=== PATIENT | male | born 1940 | race Hispanic/Latino ===

== ENCOUNTER 2016-10-23 10:09 | Inpatient (IN) | payer BC, MEDICARE ==
[2016-10-23 10:51] LABS: ADD MANUAL DIFF? NO
[2016-10-23 11:02] LABS: BASO # 0.03 K/mm3 (0.0-2.0); BASO % 0.4 % (0.0-3.0); EOS # 0.2 (0.0-0.7); EOS % 3.3 % (1.5-5.0); GRAN # 5.37 (1.4-6.5); GRAN % 73.1 % (50.0-68.0); HEMATOCRIT 39.2 % (42.0-52.0); LYMPH % 13.8 % (22.0-35.0); MEAN CELL VOLUME 92.7 fL (80.0-105.0); MEAN CORPUSCULAR HEMOGLOBIN 32.6 pg (25.0-35.0); MEAN CORPUSCULAR HGB CONC 35.2 g/dl (31.0-37.0); MEAN PLATELET VOLUME 12.2 fl (7.0-11.0); MONO # 0.7 (0.1-0.6); MONO % 9.4 % (1.0-6.0); PLATELET COUNT 165 10^3/uL (120.0-450.0); RED CELL DISTRIBUTION WIDTH 12.1 % (11.5-14.5); WHITE BLOOD COUNT 7.3 10^3/ul (4.5-11.0)
--- NOTE | 2016-10-23 11:07 | ED PDOC ---
Arrival/HPI - General Chief Complaint: Trauma Time Seen by Provider: 10/23/16 10:16 Historian: Patient - History of Present Illness Narrative History of Present Illness (Text): 10/23/16 11:03 Patient is a 76 year old male whose past medical history includes Parkinson's and dementia presenting to the emergency department for generalized weakness and fall at home this morning. Patient states he does not remember the fall and unsure if he hit his head. Son is at bedside providing history. Son states he did not witness the fall but was told the patient "slouched" before hitting the ground at low impact. He states no focal weakness was noticed by any family members. He also states the patient was able to bear weight but was not able to ambulate after the fall. Patient currently denies any complaints. PMD: Dr. Slaughter Neurologist: Dr. Anderson Symptom Onset: Sudden Symptom Course: Unchanged Modifying Factors (Text): None Associated Symptoms (Text): None Past Medical History - Provider Review Nursing Documentation Reviewed: Yes - Cardiac Hx Cardiac Disorders: Yes Hx Pacemaker: No - Pulmonary Hx Respiratory Disorders: No - Neurological Hx Neurological Disorder: Yes Hx Dementia: Yes Hx Paralysis: No Hx Parkinson's Disease: Yes - HEENT Hx HEENT Disorder: No - Renal Hx Renal Disorder: No - Endocrine/Metabolic Hx Endocrine Disorders: Yes Hx Hypothyroidism: Yes - Hematological/Oncological Hx Blood Disorders: No Hx Blood Transfusions: No - Integumentary Hx Dermatological Disorder: No - Musculoskeletal/Rheumatological Hx Musculoskeletal Disorders: No - Gastrointestinal Hx Gastrointestinal Disorders: No - Genitourinary/Gynecological Hx Genitourinary Disorders: No - Psychiatric Hx Psychophysiologic Disorder: Yes Hx Emotional Abuse: No Hx Physical Abuse: No Hx Substance Use: No - Anesthesia Hx Anesthesia Reactions: No Hx Malignant Hyperthermia: No - Suicidal Assessment Feels Threatened In Home Enviroment: No Family/Social History - Physician Review Nursing Documentation Reviewed: Yes Family/Social History: Unknown Family HX Smoking Status: Unknown If Ever Smoked Hx Alcohol Use: No Hx Substance Use: No Allergies/Home Meds Allergies/Adverse Reactions: Allergies No Known Allergies Allergy (Verified 10/23/16 10:18) Home Medications: Home Meds Medication Instructions Recorded Confirmed Aspirin [Aspirin Chewable] 81 mg PO DAILY 10/23/16 10/23/16 Chondroitin Sulfate A Sodium 400 mg PO BID 10/23/16 10/23/16 [Chondroitin Sulfate] Finasteride [Proscar] 5 mg PO DAILY 10/23/16 10/23/16 Glucosamine Sulfate Dipot Chlr 500 mg PO BID 10/23/16 10/23/16 [Glucosamine] Levothyroxine [Synthroid] 50 mcg PO DAILY 10/23/16 10/23/16 Mirabegron [Myrbetriq] 0 mg PO .3-4 TIMES 10/23/16 10/23/16 Multivit-Min/FA/Lycopen/Lutein 1 tab PO DAILY 10/23/16 10/23/16 [Sentry Senior Multivit Caplet] Pimavanserin Tartrate [Nuplazid] 17 mg PO BID 10/23/16 10/23/16 traZODone [Desyrel] 100 mg PO HS 10/23/16 10/23/16 Review of Systems - Review of Systems Systems not reviewed;Unavailable: Dementia (baseline) Eyes: absent: Vision Changes Respiratory: absent: SOB Neurological: absent: Focal Weakness Physical Exam Vital Signs Reviewed: Yes Vital Signs Temp Pulse Resp BP Pulse Ox 10/23/16 11:30 55 L 18 122/75 98 10/23/16 10:18 97.5 F L 53 L 16 120/73 97 Temperature: Afebrile Blood Pressure: Normal Pulse: Bradycardic Respiratory Rate: Normal Appearance: Positive for: Well-Appearing, Non-Toxic, Comfortable Pain Distress: None Mental Status: Positive for: other (Oriented x 3, baseline as per family) - Systems Exam Head: Present: Atraumatic, Normocephalic Pupils: Present: PERRL Conjunctiva: Present: Normal Pharnyx: Present: Other (Brown material on tongue). No: ERYTHEMA, EXUDATE Neck: Present: Normal Range of Motion, Other (Supple). No: MIDLINE TENDERNESS Respiratory/Chest: Present: Clear to Auscultation, Good Air Exchange. No: Respiratory Distress, Accessory Muscle Use Cardiovascular: Present: Regular Rate and Rhythm, Normal S1, S2. No: Murmurs Abdomen: Present: Normal Bowel Sounds. No: Tenderness, Distention, Peritoneal Signs Back: Present: Normal Inspection. No: Midline Tenderness Upper Extremity: Present: Normal Inspection, Normal ROM. No: Cyanosis, Edema, Deformity Lower Extremity: Present: Normal Inspection, Normal ROM, Other (No bony hip tenderness). No: Edema, Deformity Skin: Present: Warm, Dry, Normal Color. No: Rashes Psychiatric: Present: Oriented x 3 (Baseline as per family), Normal Concentration Medical Decision Making ED Course and Treatment: Impression: 76 year old male whose past medical history includes Parkinson's and dementia presenting to the emergency department for generalized weakness and fall at home this morning. Differential Diagnosis include but are not limited to: Plan: -- CT Head, EKG, CXR -- Labs -- Reassess and disposition Progress Notes: EKG shows sinus bradycardia at 53 BPM with incomplete right bundle branch block with Q waves in III and AVF. CT Head Systems Coordinator: Ronnell Walsh MD IMPRESSION: No acute findings Ankle X-ray Systems Coordinator: Stefano Jay DO IMPRESSION: No evidence of acute displaced fracture nor dislocation. 10/23/16 11:58 Labs grossly normal. All imaging WNL. Paged neurologist and med software configuration analyst, and will admit for syncope vs tia - Lab Interpretations Lab Results: 10/23/16 10:30 10/23/16 10:30 Lab Results 10/23/16 10:30: Free T4 0.87, TSH 3rd Generation 5.06 H 10/23/16 10:30: Sodium 137, Potassium 4.5, Chloride 103, Carbon Dioxide 29, Anion Gap 10, BUN 17, Creatinine 1.0, Est GFR ( Amer) > 60, Est GFR (Non- Af Amer) > 60, Random Glucose 105, Calcium 8.9, Phosphorus 2.9, Magnesium 2.0, Total Bilirubin 0.6, AST 30, ALT 35, Alkaline Phosphatase 81, Lactate Dehydrogenase 379, Total Creatine Kinase 97, Troponin I < 0.01, NT-Pro-B Natriuret Pep 139, Total Protein 6.7, Albumin 3.6, Globulin 3.0, Albumin/ Globulin Ratio 1.2 10/23/16 10:30: WBC 7.3, RBC 4.23, Hgb 13.8 L, Hct 39.2 L, MCV 92.7, MCH 32.6, MCHC 35.2, RDW 12.1, Plt Count 165, MPV 12.2 H, Gran % 73.1 H, Lymph % (Auto) 13.8 L, Adams % (Auto) 9.4 H, Eos % (Auto) 3.3, Baso % (Auto) 0.4, Gran # 5.37, Lymph # 1.0 L, Adams # 0.7 H, Eos # 0.2, Baso # 0.03 - RAD Interpretation Radiology Orders: 10/23/16 10:31 CHEST PORTABLE [RAD] Stat 10/23/16 11:02 HEAD W/O CONTRAST [CT] Stat 10/23/16 11:04 ANKLE LEFT 3 VIEWS ROUTINE [RAD] Stat - EKG Interpretation Interpreted by ED Physician: Yes Type: 12 lead EKG - Medication Orders Current Medication Orders: Discontinued Medications Aspirin (Aspirin Chewable) 81 mg PO STAT STA Stop: 10/23/16 12:03 Last Admin: 10/23/16 12:07 Dose: 81 mg - Scribe Statement The provider has reviewed the documentation as recorded by the Gwyn Magana Provider Scribe Attestation: All medical record entries made by the Gwyn were at my direction and personally dictated by me. I have reviewed the chart and agree that the record accurately reflects my personal performance of the history, physical exam, medical decision making, and the department course for this patient. I have also personally directed, reviewed, and agree with the discharge instructions and disposition. Disposition/Present on Arrival - Present on Arrival Any Indicators Present on Arrival: No History of DVT/PE: No History of Uncontrolled Diabetes: No Urinary Catheter: No History of Decub. Ulcer: No History Surgical Site Infection Following: None - Disposition Have Diagnosis and Disposition been Completed?: Yes Diagnosis: Syncope Disposition: HOSPITALIZED Disposition Time: 12:02 Patient Plan: Admission Patient Problems: Current Active Problems Problem Status Onset Syncope Acute Condition: FAIR
--- NOTE | 2016-10-23 11:08 | RAD ---
HISTORY: fall COMPARISON: No prior. FINDINGS: LUNGS: No active pulmonary disease. PLEURA: No significant pleural effusion identified, no pneumothorax apparent. CARDIOVASCULAR: Normal. OSSEOUS STRUCTURES: No significant abnormalities. VISUALIZED UPPER ABDOMEN: Normal. OTHER FINDINGS: None. IMPRESSION: No active disease.
[2016-10-23 11:10] LABS: ALB/GLOB RATIO 1.2 (1.1-1.8); ALKALINE PHOSPHATASE 81 U/L (38-133); ALT/SGPT 35 U/L (7-56); AST/SGOT 30 U/L (15-59); BILIRUBIN,TOTAL 0.6 mg/dL (0.2-1.3); BLOOD UREA NITROGEN 17 mg/dL (7-21); CALCIUM 8.9 mg/dL (8.4-10.5); CARBON DIOXIDE 29 mmol/L (21-33); CHLORIDE 103 mmol/L (98-107); GFR AFRICAN-AMERICAN > 60; GLUCOSE,RANDOM 105 mg/dL (70-110); PHOSPHOROUS 2.9 mg/dL (2.5-4.5); POTASSIUM 4.5 mmol/L (3.6-5.0); SODIUM 137 mmol/L (132-148); TOTAL PROTEIN 6.7 g/dL (5.8-8.3)
[2016-10-23 11:22] LABS: TROPONIN I < 0.01 ng/mL
--- NOTE | 2016-10-23 11:23 | CT ---
PROCEDURE: CT HEAD WITHOUT CONTRAST. HISTORY: altered COMPARISON: None available. TECHNIQUE: Axial computed tomography images were obtained through the head/brain without intravenous contrast. Radiation dose: Total exam DLP = 857 mGy-cm. This CT exam was performed using one or more of the following dose reduction techniques: Automated exposure control, adjustment of the mA and/or kV according to patient size, and/or use of iterative reconstruction technique. FINDINGS: HEMORRHAGE: No intracranial hemorrhage. BRAIN: No mass effect or edema. No atrophy or chronic microvascular ischemic changes. VENTRICLES: Unremarkable. No hydrocephalus. CALVARIUM: Unremarkable. PARANASAL SINUSES: Unremarkable as visualized. No significant inflammatory changes. MASTOID AIR CELLS: Unremarkable as visualized. No inflammatory changes. OTHER FINDINGS: None. IMPRESSION: No acute findings
[2016-10-23 11:26] LABS: FREE T4 0.87 ng/dL (0.78-2.19)
--- NOTE | 2016-10-23 11:36 | RAD ---
PROCEDURE: Left Ankle Radiographs. HISTORY: left ankle pain COMPARISON: None FINDINGS: BONES: No evidence of acute displaced fracture nor dislocation. Small plantar surface calcaneal enthesophyte. JOINTS: Normal. No osteoarthritis. Ankle mortise maintained. Talar dome intact SOFT TISSUES: Vascular calcifications are present. OTHER FINDINGS: None. IMPRESSION: No evidence of acute displaced fracture nor dislocation.
[2016-10-23 11:40] LABS: THYROID STIMULATING HORMONE 5.06 mIU/mL (0.46-4.68)
[2016-10-23 13:00] LABS: URINE APPEARANCE CLEAR (CLEAR); URINE BILIRUBIN NEGATIVE (NEGATIVE); URINE BLOOD NEGATIVE (NEGATIVE); URINE COLOR YELLOW (YELLOW); URINE GLUCOSE (UA) NEGATIVE (NEGATIVE); URINE KETONE NEGATIVE (NEGATIVE); URINE LEUKOCYTE ESTERASE NEGATIVE Leu/uL (NEGATIVE); URINE PROTEIN NEGATIVE mg/dL (<30 mg/dL); URINE UROBILINOGEN 0.2 E.U./dL (<1 E.U./dL)
[2016-10-23] MEDS ORDERED: Pneumococcal 23-Valent Vaccine IM ONE (14:31)
--- NOTE | 2016-10-23 20:26 | CARD ---
APPROVED REPORT EKG Measurement Heart [id number] <Conclusion> Sinus bradycardia Incomplete right bundle branch block Inferior infarct, age undetermined Abnormal ECG
--- NOTE | 2016-10-23 20:38 | CP.PCM.CON ---
<Michel Moss - Last Filed: 10/23/16 21:03> History of Present Illness - History of Present Illness History of Present Illness: This is a 76 y/o male with an unclear history of Parkinsons and dementia presenting s/p a fall at home. Patient states he does not remember this event however it was witnessed by family members who state that the patient was sitting in a chair when he began to slump forward and fell slowly to the ground. does not report loss of consciousness, seizure activity or head injury. The patient states he "blacked out" and does not remember the event at all. He notes one prior episode of syncope about 6 years ago. Currently he offers no complaints. He denies headache, focal weakness, chills, fever. Review of Systems - Constitutional Constitutional: absent: Chills, Fever - EENT Eyes: absent: Blurred Vision, Change in Vision Nose/Mouth/Throat: absent: Nasal Congestion, Nasal Discharge - Cardiovascular Cardiovascular: absent: Chest Pain, Edema, Syncope - Respiratory Respiratory: absent: Cough - Gastrointestinal Gastrointestinal: absent: Abdominal Pain, Diarrhea, Nausea - Genitourinary Genitourinary: absent: Hematuria, Urinary Urgency - Musculoskeletal Musculoskeletal: absent: Back Pain, Neck Pain - Integumentary Integumentary: absent: New Lesions - Neurological Neurological: absent: Abnormal Speech, Convulsions, Dizziness, Focal Weakness, Syncope - Psychiatric Psychiatric: absent: Anxiety, Depression Past Patient History - Past Social History Smoking Status: Unknown If Ever Smoked - CARDIAC Hx Cardiac Disorders: Yes Hx Pacemaker: No - PULMONARY Hx Respiratory Disorders: No - NEUROLOGICAL Hx Neurological Disorder: Yes Hx Dementia: Yes Hx Parkinson's Disease: Yes - HEENT Hx HEENT Problems: Yes (eyeglasses) - RENAL Hx Chronic Kidney Disease: No - ENDOCRINE/METABOLIC Hx Endocrine Disorders: Yes Hx Hypothyroidism: Yes - HEMATOLOGICAL/ONCOLOGICAL Hx Blood Disorders: No - INTEGUMENTARY Hx Dermatological Problems: No Other/Comment: small 0.5cm round ibrahim colored hard growth to top of r hand and red dry scab small 0.5cm to top of right hand, brown skin discoloration under bottom left lip - MUSCULOSKELETAL/RHEUMATOLOGICAL Hx Falls: Yes (today and past) - GASTROINTESTINAL Other/Comment: colonoscopy 08/2013 dx diverticulosis, hemorrhoids, hx colon polyps - GENITOURINARY/GYNECOLOGICAL Hx Genitourinary Disorders: Yes Hx Hematuria: Yes Hx Incontinence: Yes - PSYCHIATRIC Hx Psychophysiologic Disorder: Yes Hx Emotional Abuse: No Hx Physical Abuse: No - SURGICAL HISTORY Hx Surgeries: No (family denies) - ANESTHESIA Hx Anesthesia Reactions: No Hx Malignant Hyperthermia: No Meds Allergies/Adverse Reactions: Allergies Allergy/AdvReac Type Severity Reaction Status Date / Time No Known Allergies Allergy Verified 10/23/16 10:18 - Medications Medications: Current Medications Aspirin (Aspirin Chewable) 81 mg PO DAILY NATHALIE Non-Formulary Medication (Chondroitin Sulfate A Sodium [Chondroitin Sulfate]) 400 mg PO BID NATHALIE Non-Formulary Medication (Glucosamine Sulfate Dipot Chlr [Glucosamine]) 500 mg PO BID NATHALIE Non-Formulary Medication (Mirabegron [Myrbetriq]) 25 mg PO .3-4 TIMES NATHALIE Trazodone HCl (Desyrel) 100 mg PO HS NATHALIE Physical Exam - Constitutional Appears: Non-toxic, No Acute Distress - Head Exam Head Exam: ATRAUMATIC, NORMOCEPHALIC - Eye Exam Eye Exam: EOMI, PERRL - ENT Exam ENT Exam: Mucous Membranes Dry - Neck Exam Neck exam: Positive for: Normal Inspection. Negative for: Lymphadenopathy - Respiratory Exam Respiratory Exam: Clear to Auscultation Bilateral. absent: Rhonchi, Wheezes - Cardiovascular Exam Cardiovascular Exam: REGULAR RHYTHM, +S1, +S2 - GI/Abdominal Exam GI & Abdominal Exam: Normal Bowel Sounds, Soft. absent: Tenderness - Extremities Exam Extremities exam: Negative for: calf tenderness, pedal edema - Back Exam Back exam: NORMAL INSPECTION - Neurological Exam Neurological exam: Alert, CN II-XII Intact, Oriented x3 Additional comments: no motor deficits - Psychiatric Exam Psychiatric exam: Normal Affect - Skin Skin Exam: Normal Color, Warm Results - Vital Signs Recent Vital Signs: Last Vital Signs Temp 97.6 F 10/23/16 19:12 Pulse 54 L 10/23/16 19:12 Resp 20 10/23/16 19:12 BP 139/83 10/23/16 19:12 Pulse Ox 99 10/23/16 13:19 - Labs Result Diagrams: 10/23/16 10:30 10/23/16 10:30 Labs: Laboratory Results - last 24 hr 10/23/16 12:45 Urine Color Yellow Urine Appearance Clear Urine pH 6.0 Ur Specific Julian 1.020 Urine Protein Negative Urine Glucose (UA) Negative Urine Ketones Negative Urine Blood Negative Urine Nitrate Negative Urine Bilirubin Negative Urine Urobilinogen 0.2 Ur Leukocyte Esterase Negative Assessment & Plan - Assessment and Plan (Free Text) Assessment: 76 y/o male with hx lewy body dementia presenting s/p fall at home. Patient is stable and without significant head trauma or injury. There is concern for cerbrovascular event. - ASA daily - Lipitor 40mg daily - MRI, MRA, carotid doppler - continue Trazadone as per home medications <Liang Anderson - Last Filed: 12/13/16 12:09> Results - Vital Signs Recent Vital Signs: Last Vital Signs Temp 97.3 F L 10/25/16 12:43 Pulse 65 10/25/16 12:43 Resp 18 10/25/16 12:43 BP 162/100 H 10/25/16 12:43 Pulse Ox 96 10/25/16 06:00 - Labs Result Diagrams: 10/24/16 06:05 10/24/16 06:05 Attending/Attestation - Attestation I have personally seen and examined this patient.: Yes I have fully participated in the care of the patient.: Yes I have reviewed all pertinent clinical information: Yes
--- NOTE | 2016-10-24 02:52 | CON ---
DATE: 10/23/2016 REFERRING PHYSICIAN: Dr. Iyer. HISTORY OF PRESENT ILLNESS: This is a very nice 76-year-old male whose past medical history includes Lewy body dementia. The patient was at home. He was getting to go with his to a physician when he suddenly became very weak. He did not fall, but he became suddenly, almost, atonic. There was actually no loss of consciousness. The patient had no focal weakness other than this inability to stand up. He is not offering any new or other specific complaints. REVIEW OF SYSTEMS: Negative for chest pain, shortness of breath. No focal numbnesses or weaknesses. He currently feels like he is back to his normal state. CURRENT MEDICATIONS: Nuplazid, chondroitin, finasteride, glucosamine, levothyroxine, Myrbetriq, multivitamin, and trazodone. ALLERGIES: He has no known drug allergies. SOCIAL HISTORY: He does not drink. He does not smoke. PHYSICAL EXAMINATION: VITAL SIGNS: His blood pressure is 142/82. His heart rate is 55, temperature is 97.5. His respirations are 20. His O2 sat is 99% on room air. HEART: Regular sinus rhythm. LUNGS: Clear to auscultation and percussion. ABDOMEN: Soft, nontender. EXTREMITIES: No cyanosis, clubbing, or edema. NEUROLOGIC: This is an awake and alert man. He answers my questions. He is neither aphasic nor dysarthric, and he appears to be at his baseline. Cranial nerves II-XII: Pupils are equally reactive to light and accommodation. Extraocular muscles are intact. There is no facial asymmetry. The tongue is midline. Palate symmetric. He has sort of like a masklike facies. Decreased blink. He has no tremor. MOTOR SYSTEM: Strength is reasonably good. Deep tendon reflexes are intact. There is increased tone, but no cogwheeling. Gait is deferred at this point in time. NEUROLOGICAL IMPRESSION: This patient appears to have a vertebrobasilar transient ischemic attack. PLAN AND RECOMMENDATION: We are going to do a full and complete workup on the patient, which will include MRI/MRA. We will start the patient on a statin as well as a baby aspirin immediately. We will make sure the swallowing screen is done on this patient. We will get a cholesterol profile. We will follow the patient up in the office. Thank you so very much for allowing me to participate in the care of this patient. Liang Anderson MD cc: [id number] TT: 10/24/2016 02:51:23 Confirmation # [id number] Dictation # [id number] tn MTDD
[2016-10-24 06:46] LABS: HEMATOCRIT 41.8 % (42.0-52.0); MEAN CELL VOLUME 90.5 fL (80.0-105.0); MEAN CORPUSCULAR HEMOGLOBIN 32.3 pg (25.0-35.0); MEAN CORPUSCULAR HGB CONC 35.6 g/dl (31.0-37.0); MEAN PLATELET VOLUME 12.4 fl (7.0-11.0); WHITE BLOOD COUNT 7.4 10^3/ul (4.5-11.0)
[2016-10-24 06:55] LABS: BLOOD UREA NITROGEN 11 mg/dL (7-21); CALCIUM 8.9 mg/dL (8.4-10.5); CARBON DIOXIDE 27 mmol/L (21-33); CHLORIDE 105 mmol/L (98-107); CHOLESTEROL 157 mg/dL (130-200); GFR AFRICAN-AMERICAN > 60; GLUCOSE,RANDOM 89 mg/dL (70-110); POTASSIUM 3.8 mmol/L (3.6-5.0); SODIUM 139 mmol/L (132-148)
--- NOTE | 2016-10-24 07:43 | HP ---
CHIEF COMPLAINT: "I black out." HISTORY OF PRESENT ILLNESS: The patient is a 76-year-old male with past medical history of Parkinson's disease, dementia, came to the Emergency Room for generalized weakness, a fall at home this morning. The patient states that he does not remember the fall and unsure if he hit his head. Son was on the bedside in the Emergency Room who provided the history. The patient is not a very good historian. Son states that he did not witness the fall but was told by the patient. He states that no focal weakness was noticed by any family members. The patient told me in the telemetry that he passed out and blacked out, but does not remember exactly. After fall, patient was able to walk and not complaining about any pain. No shortness of breath. PAST MEDICAL HISTORY: Dementia, Parkinson disease, hypothyroidism, history of fall. FAMILY HISTORY: Father and mother noncontributory. HABITS: No alcohol. No substance abuse. Never smoked. ALLERGIES: The patient is not allergic with any medications. HOME MEDICATIONS: Aspirin, chondroitin sulfate, Proscar, glucosamine, Synthroid , multivitamins, trazodone. REVIEW OF SYSTEMS: The patient is seen and examined on the bedside in the telemetry. Looks comfortable. No nausea, vomiting, or diarrhea. No hematuria or hematochezia. No swelling of the legs. No chest pain, no palpitation. No headache, no dizziness. No shortness of breath. No fever, no chills. PHYSICAL EXAMINATION: VITAL SIGNS: Temperature 97.5, pulse 53, respiratory rate 18 , blood pressure 120/73. HEENT: Head normocephalic. Eyes: PERRLA. Extraocular muscles intact. Conjunctivae are clear. Nose patent. Mucous membranes moist. NECK: Supple. No carotid bruit, JVD or thyromegaly. CHEST: Bilaterally symmetrical. HEART: S1, S2 positive. LUNGS: Clear to auscultation. ABDOMEN: Soft. Bowel sounds present. No organomegaly. EXTREMITIES: No edema, no cyanosis. NEUROLOGIC: The patient is awake, alert. Moving all 4 extremities. No focal deficit. LABORATORY DATA: White blood cells 7.3, hemoglobin 13.8, hematocrit 39.2, platelets 155. Sodium 137, potassium 4.5, BUN 17, creatinine 1.0, and glucose 105. ASSESSMENT AND PLAN: The patient is a 76-year-old male with anemia, came with syncopal attack/passing out, history of Parkinson's disease, hypothyroidism, dementia, degenerative joint disease, is admitted with a syncopal attack. CAT scan of the head done, reviewed by me. X-rays of the ankle done, reviewed by me. History of falls, history of hematuria, urinary incontinence. Called consult with Dr. Liang Anderson because he is the private neurologist of the patient. GI and DVT prophylaxis. Bilateral carotid Doppler of the neck ordered. MRA of the head ordered. The patient should be on fall precautions. Will follow up. Aisha Iyer MD cc: [id number] TT: 10/24/2016 07:42:24 arley APARICIO
[2016-10-24] MEDS ORDERED: CHONDROITIN SULFATE A SODIUM 400 MG PO SCH (10:00)
[2016-10-24] MEDS ORDERED: GLUCOSAMINE SULFATE DIPOT CHLR 500 MG PO SCH (10:00)
--- NOTE | 2016-10-24 13:50 | CP.PCM.PN ---
<Michel Moss - Last Filed: 10/24/16 13:43> Subjective - Date & Time of Evaluation Date of Evaluation: 10/24/16 Time of Evaluation: 11:40 - Subjective Subjective: Patient awake and alert this morning. Son is at bedside. Overnight was uneventful. Patient has no complaints at this time. He remains neurologically intact. He answers questions appropriately. Son states patient is at his baseline mental status. He will go for MRI and MRA this morning. Objective - Vital Signs/Intake and Output Vital Signs (last 24 hours): Temp Pulse Resp BP Pulse Ox 97 F L 64 20 99/66 L 96 10/24/16 12:00 10/24/16 12:00 10/24/16 12:00 10/24/16 12:00 10/24/16 09:00 Intake and Output: 10/24/16 10/24/16 06:59 18:59 Intake Total 0 Output Total 500 Balance -500 - Medications Medications: Current Medications Aspirin (Aspirin Chewable) 81 mg PO DAILY [facility] Last Admin: 10/24/16 09:28 Dose: 81 mg Atorvastatin Calcium (Lipitor) 40 mg PO DIN [facility] Last Admin: 10/23/16 21:37 Dose: 40 mg Non-Formulary Medication (Chondroitin Sulfate A Sodium [Chondroitin Sulfate]) 400 mg PO BID [facility] Last Admin: 10/24/16 09:23 Dose: Not Given Non-Formulary Medication (Glucosamine Sulfate Dipot Chlr [Glucosamine]) 500 mg PO BID [facility] Last Admin: 10/24/16 09:24 Dose: Not Given Non-Formulary Medication (Mirabegron [Myrbetriq]) 25 mg PO .3-4 TIMES [facility] Trazodone HCl (Desyrel) 100 mg PO [facility] Last Admin: 10/23/16 21:37 Dose: 100 mg - Labs Labs: 10/24/16 06:05 10/24/16 06:05 - Constitutional Appears: Non-toxic, No Acute Distress - Head Exam Head Exam: ATRAUMATIC, NORMOCEPHALIC - Eye Exam Eye Exam: EOMI, PERRL - ENT Exam ENT Exam: Mucous Membranes Dry - Neck Exam Neck Exam: Full ROM, Normal Inspection. absent: Lymphadenopathy - Respiratory Exam Respiratory Exam: Clear to Ausculation Bilateral. absent: Rales, Rhonchi, Wheezes - Cardiovascular Exam Cardiovascular Exam: REGULAR RHYTHM, +S1, +S2 - GI/Abdominal Exam GI & Abdominal Exam: Soft, Normal Bowel Sounds. absent: Tenderness - Extremities Exam Extremities Exam: absent: Calf Tenderness, Pedal Edema - Neurological Exam Neurological Exam: Alert, Awake - Psychiatric Exam Psychiatric exam: Normal Affect. absent: Anxious, Depressed - Skin Skin Exam: Normal Color, Warm Assessment and Plan - Assessment and Plan (Free Text) Assessment: 76 y/o male with hx Lewy Body dementia presenting s/p fall at home. Patient is neurologically intact. Mental status is at baseline. He will go for MRI and MRA today to r/o cerebrovascular causes of his fall and apparent mental status changes. - continue with Aspirin and statin therapy - f/u MRI, MRA, carotid doppler results - will continue patient on Trazodone - will continue patient on Nuplazid 17mg BID as well - son will bring meds from home <Liang Anderson - Last Filed: 12/13/16 12:05> Objective - Vital Signs/Intake and Output Vital Signs (last 24 hours): Temp Pulse Resp BP Pulse Ox 97.3 F L 65 18 162/100 H 96 10/25/16 12:43 10/25/16 12:43 10/25/16 12:43 10/25/16 12:43 10/25/16 06:00 - Labs Labs: 10/24/16 06:05 10/24/16 06:05 Attending/Attestation - Attestation I have personally seen and examined this patient.: Yes I have fully participated in the care of the patient.: Yes I have reviewed all pertinent clinical information, including history, physical exam and plan: Yes
--- NOTE | 2016-10-24 14:43 | US ---
PROCEDURE: Bilateral carotid artery duplex ultrasound HISTORY: Carotid stenosis CVA PHYSICIAN(S): Ki Posadas MD. TECHNIQUE: Duplex sonography and color-flow Doppler were used to evaluate the carotid bifurcations and limited segments of the vertebral arteries bilaterally. FINDINGS: There is mild to moderate focal smooth heterogeneous echogenic plaque noted at the carotid bifurcations bilaterally. The peak systolic velocity in the proximal right internal carotid artery is 120 cm/sec. This corresponds to a 40-59 percent proximal right ICA stenosis. Normal systolic velocities are noted in the proximal right external carotid artery. There is antegrade flow in the right vertebral artery. The peak systolic velocity in the proximal left internal carotid artery is 103 cm/sec. This corresponds to a 20 to 39% proximal left ICA stenosis. Normal systolic velocities are noted in the proximal left external carotid artery. There is antegrade flow in the dominant left vertebral artery. IMPRESSION: 1. 40-59 percent proximal right ICA stenosis. 2. 20-39 percent proximal left ICA stenosis. 3. Antegrade flow in both vertebral arteries.
--- NOTE | 2016-10-24 15:02 | MRI ---
PROCEDURE: MRI BRAIN WITHOUT CONTRAST HISTORY: r/o cva COMPARISON: 01/27/2015 TECHNIQUE: Multiplanar, multisequence MR images of the brain were obtained without intravenous contrast enhancement. FINDINGS: HEMORRHAGE: None DWI: No evidence of an acute or early subacute infarction. BRAIN PARENCHYMA: No mass effect or edema. Mild chronic microvascular changes are seen in the periventricular and subcortical white matter. VENTRICLES: Unremarkable. No hydrocephalus. CRANIUM: Unremarkable. ORBITS: Grossly unremarkable. PARANASAL SINUSES/MASTOIDS: Clear VASCULAR SYSTEM: Skull base flow voids intact. OTHER FINDINGS: None. IMPRESSION: No acute findings
--- NOTE | 2016-10-24 15:05 | MRI ---
PROCEDURE: Magnetic Resonance Angiography Brain HISTORY: r/o cva COMPARISON: None available. TECHNIQUE: 3D time of flight MR angiography of the intracranial arteries was performed. Rotating maximum intensity projection images were generated. FINDINGS: INTERNAL CEREBRAL ARTERIES: Unremarkable. The skull base, petrous, cavernous and supraclinoid segments are bilaterally widely patient. ANTERIOR CEREBRAL ARTERIES: Unremarkable. A1 and A2 segments are widely patent. Smaller distal branches unremarkable, as visualized. MIDDLE CEREBRAL ARTERIES: Unremarkable. M1 and M2 segments are widely patent. Perisylvian branches grossly symmetric. POSTERIOR CIRCULATION: Basilar Artery: Severe tortuosity of the basilar artery. Distal Vertebral Arteries: Unremarkable. Posterior Cerebral Arteries: Unremarkable. Posterior Inferior Cerebellar Arteries: Unremarkable. ANEURYSM/ VASCULAR MALFORMATIONS: None. OTHER FINDINGS: None. IMPRESSION: Unremarkable MR angiography of the brain.
[2016-10-24] MEDS ORDERED: Home Med 1 UNIT PO SCH (18:00)
[2016-10-24] MEDS ORDERED: NUPLAZID 17 MG PO SCH (18:00)
[2016-10-24] MEDS: GLUCOSAMINE 500 MG PO SCH (21:18)
[2016-10-24] MEDS: CHONDROITIN PO SCH (21:18)
[2016-10-24] MEDS: NUPLAZID 17 MG PO SCH (21:19)
[2016-10-24] MEDS: MYRBETRIQ 50 MG PO SCH (21:19)
--- NOTE | 2016-10-25 06:42 | PN ---
DATE: 10/24/2016 SUBJECTIVE: The patient was seen and examined on the bedside in the evening. Daughter and were sitting on the bedside and I spoke to the patient's son today early in the morning and length of time discussion done. All questions answered. Nursing supervisor metal placing, Kathryn, was standing on the bedside, ____ the patient was confused and was a little bit restless and anxious. Overnight was uneventful. The patient does not have any complaints. He just wants to go out to get fresh air. MRI, MRA and bilateral carotid Doppler of the neck are done. PHYSICAL EXAMINATION: VITAL SIGNS: Temperature 97, pulse 64, respiratory rate 20, blood pressure 99/ 56, pulse oximetry 96. HEENT: Head normocephalic, atraumatic. Eyes: PERRLA. Extraocular muscles intact. Conjunctivae clear. Nose patent. Mucous membranes moist. NECK: Supple. No carotid bruit, JVD or thyromegaly. CHEST: Bilaterally symmetrical. HEART: S1, S2 positive. LUNGS: Clear to auscultation. ABDOMEN: Soft. Bowel sounds present. No organomegaly. EXTREMITIES: No edema, no cyanosis. NEUROLOGIC: The patient is awake, alert, but getting episodes of confusion, moving all 4 extremities. No focal deficit. MEDICATIONS: Aspirin, Lipitor, chondroitin sulfate, glucosamine, trazodone. LABORATORY DATA: White blood cells 7.4, hemoglobin 14.9, hematocrit 41.8, platelets 186. Sodium 139, potassium 3.8, BUN 11, creatinine 0.8, glucose 89. ASSESSMENT AND PLAN: The patient is a 76-year-old male with Lewy body dementia presenting with fall at home. Rule out syncopal attack. The patient went for brain MRI, no acute findings. Reviewed by me. Head MRA is done, unremarkable MR angiography of the brain, reviewed by me. Bilateral carotid Doppler ultrasound is done, reviewed by me, 20-39% proximal left internal carotid artery stenosis, antegrade flow in both vertebral arteries noted, 40-59% proximal right internal carotid artery stenosis. Carotid artery Doppler done. According to Dr. Ki Posadas, there is antegrade flow of the blood . CAT scan of the head is done, reviewed Dr. Liang Anderson's notes. The patient appears to have vertebrobasilar transient ischemic attack. Dr. Anderson ordered a full workup. That looks like within normal limits. Today evening, the patient shows some signs of altered mental status. Kathryn, the head nurse, was standing on the bedside. Yesterday, 1:1, then patient's family, and daughter came. Length of time discussion done with them. All questions answered. We will continue aspirin, trazodone, home medications, whatever the patient was taking at home. The patient has hypothyroidism, getting Synthroid. Benign prostatic hypertrophy, getting Proscar. Hypercholesterolemia, taking Lipitor. Degenerative joint disease, taking medications for that. Gastrointestinal and deep venous thrombosis prophylaxis. Repeat labs. We will follow up. Aisha Iyer MD cc: [id number] TT: 10/25/2016 06:42:01 Confirmation # [id number] Dictation # [id number] tn MTDD
[2016-10-25 06:57] VITALS: TEMP 97.3; O2SAT 96
[2016-10-25] MEDS ORDERED: Levothyroxine 50 MCG TAB PO SCH (07:30)
--- NOTE | 2016-10-25 09:37 | CP.PCM.PN ---
<Michel Moss - Last Filed: 10/25/16 09:34> Subjective - Date & Time of Evaluation Date of Evaluation: 10/25/16 Time of Evaluation: 09:34 - Subjective Subjective: Patient is awake and alert. As per nursing notes, patient noted to be restless overnight. No new medications were added. Patient remains mildly confused. He answers questions appropriately however. He offers no other complaints or concerns at this time. Objective - Vital Signs/Intake and Output Vital Signs (last 24 hours): Temp Pulse Resp BP Pulse Ox 97.3 F L 78 20 162/92 H 96 10/25/16 06:00 10/25/16 06:00 10/25/16 06:00 10/25/16 06:00 10/25/16 06:00 Intake and Output: 10/25/16 10/25/16 06:59 18:59 Intake Total 300 Output Total 450 Balance -150 - Medications Medications: Current Medications Aspirin (Aspirin Chewable) 81 mg PO DAILY [facility] Last Admin: 10/24/16 09:28 Dose: 81 mg Atorvastatin Calcium (Lipitor) 40 mg PO DIN [facility] Last Admin: 10/24/16 18:39 Dose: Not Given Finasteride (Proscar) 5 mg PO DAILY [facility] Home Med (Home Med) 1 unit PO DAILY [facility] Last Admin: 10/24/16 21:19 Dose: 1 unit Home Med (Home Med) 1 unit PO TID [facility] Last Admin: 10/24/16 21:18 Dose: 1 unit Home Med (Home Med) 2 unit PO DAILY [facility] Last Admin: 10/24/16 21:19 Dose: 2 unit Levothyroxine Sodium (Synthroid) 50 mcg PO ACB [facility] Last Admin: 10/25/16 08:41 Dose: 50 mcg Trazodone HCl (Desyrel) 100 mg PO HS [facility] Last Admin: 10/24/16 21:20 Dose: 100 mg - Labs Labs: 10/24/16 06:05 10/24/16 06:05 - Constitutional Appears: Non-toxic, No Acute Distress - Head Exam Head Exam: ATRAUMATIC, NORMOCEPHALIC - Eye Exam Eye Exam: EOMI, PERRL - ENT Exam ENT Exam: Mucous Membranes Moist - Neck Exam Neck Exam: Full ROM, Normal Inspection - Respiratory Exam Respiratory Exam: Clear to Ausculation Bilateral. absent: Rales, Rhonchi, Wheezes - Cardiovascular Exam Cardiovascular Exam: REGULAR RHYTHM, +S1, +S2 - GI/Abdominal Exam GI & Abdominal Exam: Soft, Normal Bowel Sounds. absent: Tenderness - Extremities Exam Extremities Exam: absent: Calf Tenderness, Pedal Edema - Neurological Exam Neurological Exam: Alert, Awake Additional comments: oriented to person and place. patient is moving all extremities spontaneously. there are no focal deficits. - Psychiatric Exam Psychiatric exam: absent: Anxious, Depressed, Flat Affect - Skin Skin Exam: Normal Color Assessment and Plan - Assessment and Plan (Free Text) Assessment: 76 y/o male with hx Lewy Body dementia presenting s/p fall at home. Patient is neurologically intact. Mental status is at baseline. MRI, MRA are completed and do not reveal any acute findings. Carotid dopplers do not reveal significant stenosis. - no evidence of cerebrovascular disease or acute event. Aspirin and Lipitor may be discontinued when discharged. - will continue patient on Trazodone - will continue patient on Nuplazid 17mg BID as well - there is no clear evidence of a neurological cause for patient's fall and apparent change in mental status. patient and family advised to f/u with Dr. Anderson after discharge for continued management of patient's chronic neurological disease. <Liang Anderson - Last Filed: 12/13/16 12:06> Objective - Vital Signs/Intake and Output Vital Signs (last 24 hours): Temp Pulse Resp BP Pulse Ox 97.3 F L 65 18 162/100 H 96 10/25/16 12:43 10/25/16 12:43 10/25/16 12:43 10/25/16 12:43 10/25/16 06:00 - Labs Labs: 10/24/16 06:05 10/24/16 06:05 Attending/Attestation - Attestation I have personally seen and examined this patient.: Yes I have fully participated in the care of the patient.: Yes I have reviewed all pertinent clinical information, including history, physical exam and plan: Yes
[2016-10-25] MEDS: MYRBETRIQ 50 MG PO SCH (11:06)
[2016-10-25] MEDS: NUPLAZID 17 MG PO SCH (11:06)
[2016-10-25] MEDS: GLUCOSAMINE 500 MG PO SCH (11:06)
[2016-10-25] MEDS: CHONDROITIN PO SCH (11:06)
--- NOTE | 2016-10-25 12:26 | CON ---
DATE: 10/25/2016 REFERRING PHYSICIAN: Dr. Iyer. HISTORY OF PRESENT ILLNESS: This is a very nice 76-year-old male who apparently had a TIA. The ramy ent is doing very well. He is not offering any new or other specific complaints. He has been somewh at confused in the hospital. This is most likely secondary to his dementia. PHYSICAL EXAMINATION: VITAL SIGNS: Blood pressure is 120/80, heart rate is 70, afebrile. HEART: Sinus rhythm. LUNGS: Clear to auscultation and percussion. ____ EXTREMITIES: No cyanosis, clubbing or edema. GENERAL NEUROLOGIC: This is a bright, awake man. He recognized me as soon as I walked into the room . He is neither aphasic nor dysarthric. He does seem somewhat agitated. Cranial nerves II-XII: Pu pils are equal, reactive to light and accommodation. Extraocular muscles are intact. No facial asym metry. Tongue is midline. Palate is symmetrical. Motor system: Strength is reasonably good. He h as parkinsonian symptoms, which include a masklike facies, slow gait, no tremor, rigidity, decreased blink. NEUROLOGIC IMPRESSION: 1. The patient has Lewy body dementia. 2. Transient ischemic attack. PLAN AND RECOMMENDATION: Discharge patient on statin, discharge patient on aspirin, discharge patien t for followup in my office in 2 weeks. MRI/MRA is negative. Thank you so much for allowing me to participate in the care of this patient. Liang Anderson MD cc: [id number] TT: 10/25/2016 12:25:36 Confirmation # [id number] Dictation # [id number] eric
[2016-10-25 12:48] VITALS: BP 162/100; PULSE 65; RESP 18
--- NOTE | 2016-12-17 09:06 | CP.PCM.DIS ---
Provider - Provider Date of Admission: 10/23/16 12:00 dictating discharge summery of 10/25/16 Attending physician: Aisha Ieyr MD Primary care physician: roshni Time Spent in preparation of Discharge (in minutes): 60 Hospital Course - Lab Results Lab Results: Micro Results 10/23/16 12:45 Urine Urine Culture - Final No Growth (<1,000 CFU/ML) Most Recent Lab Values WBC 7.4 10^3/ul (4.5-11.0) 10/24/16 06:05 RBC 4.62 10^6/uL (3.5-6.1) 10/24/16 06:05 Hgb 14.9 gm/dL (14.0-18.0) 10/24/16 06:05 Hct 41.8 % (42.0-52.0) L 10/24/16 06:05 MCV 90.5 fL (80.0-105.0) 10/24/16 06:05 MCH 32.3 pg (25.0-35.0) 10/24/16 06:05 MCHC 35.6 g/dl (31.0-37.0) 10/24/16 06:05 RDW 12.0 % (11.5-14.5) 10/24/16 06:05 Plt Count 186 10^3/uL (120.0-450.0) 10/24/16 06:05 MPV 12.4 fl (7.0-11.0) H 10/24/16 06:05 Gran % 73.1 % (50.0-68.0) H 10/23/16 10:30 Lymph % (Auto) 13.8 % (22.0-35.0) L 10/23/16 10:30 Villalba % (Auto) 9.4 % (1.0-6.0) H 10/23/16 10:30 Eos % (Auto) 3.3 % (1.5-5.0) 10/23/16 10:30 Baso % (Auto) 0.4 % (0.0-3.0) 10/23/16 10:30 Gran # 5.37 (1.4-6.5) 10/23/16 10:30 Lymph # 1.0 (1.2-3.4) L 10/23/16 10:30 Villalba # 0.7 (0.1-0.6) H 10/23/16 10:30 Eos # 0.2 (0.0-0.7) 10/23/16 10:30 Baso # 0.03 K/mm3 (0.0-2.0) 10/23/16 10:30 Sodium 139 mmol/L (132-148) 10/24/16 06:05 Potassium 3.8 mmol/L (3.6-5.0) 10/24/16 06:05 Chloride 105 mmol/L (98-107) 10/24/16 06:05 Carbon Dioxide 27 mmol/L (21-33) 10/24/16 06:05 Anion Gap 11 (10-20) 10/24/16 06:05 BUN 11 mg/dL (7-21) 10/24/16 06:05 Creatinine 0.8 mg/dL (0.5-1.4) 10/24/16 06:05 Est GFR ( Amer) > 60 10/24/16 06:05 Est GFR (Non-Af Amer) > 60 10/24/16 06:05 POC Glucose (mg/dL) 133 mg/dL (65-110) H 10/23/16 10:20 Random Glucose 89 mg/dL (70-110) 10/24/16 06:05 Hemoglobin A1c 5.1 % (4.2-6.5) 10/24/16 06:05 Calcium 8.9 mg/dL (8.4-10.5) 10/24/16 06:05 Phosphorus 2.9 mg/dL (2.5-4.5) 10/23/16 10:30 Magnesium 2.0 mg/dL (1.7-2.2) 10/23/16 10:30 Total Bilirubin 0.6 mg/dL (0.2-1.3) 10/23/16 10:30 AST 30 U/L (15-59) 10/23/16 10:30 ALT 35 U/L (7-56) 10/23/16 10:30 Alkaline Phosphatase 81 U/L (38-133) 10/23/16 10:30 Lactate Dehydrogenase 379 U/L (333-699) 10/23/16 10:30 Total Creatine Kinase 97 U/L (35-230) 10/23/16 10:30 Troponin I < 0.01 ng/mL 10/23/16 10:30 NT-Pro-B Natriuret Pep 139 pg/mL (0-450) 10/23/16 10:30 Total Protein 6.7 g/dL (5.8-8.3) 10/23/16 10:30 Albumin 3.6 g/dL (3.0-4.8) 10/23/16 10:30 Globulin 3.0 gm/dL 10/23/16 10:30 Albumin/Globulin Ratio 1.2 (1.1-1.8) 10/23/16 10:30 Triglycerides 72 mg/dL (35-160) 10/24/16 06:05 Cholesterol 157 mg/dL (130-200) 10/24/16 06:05 LDL Cholesterol Direct 102 mg/dL (0-129) 10/24/16 06:05 HDL Cholesterol 45 mg/dL (29-60) 10/24/16 06:05 Free T4 0.87 ng/dL (0.78-2.19) 10/23/16 10:30 TSH 3rd Generation 4.02 mIU/mL (0.46-4.68) 10/24/16 06:05 Urine Color Yellow (YELLOW) 10/23/16 12:45 Urine Appearance Clear (CLEAR) 10/23/16 12:45 Urine pH 6.0 (4.7-8.0) 10/23/16 12:45 Ur Specific Matheny 1.020 (1.005-1.035) 10/23/16 12:45 Urine Protein Negative mg/dL (<30 mg/dL) 10/23/16 12:45 Urine Glucose (UA) Negative mg/dL (NEGATIVE) 10/23/16 12:45 Urine Ketones Negative mg/dL (NEGATIVE) 10/23/16 12:45 Urine Blood Negative (NEGATIVE) 10/23/16 12:45 Urine Nitrate Negative (NEGATIVE) 10/23/16 12:45 Urine Bilirubin Negative (NEGATIVE) 10/23/16 12:45 Urine Urobilinogen 0.2 E.U./dL (<1 E.U./dL) 10/23/16 12:45 Ur Leukocyte Esterase Negative Senia/uL (NEGATIVE) 10/23/16 12:45 - Hospital Course Hospital Course: Patient is a 76 year old male whose past medical history includes Parkinson's and dementia presenting to the emergency department for generalized weakness and fall at home this morning. Patient states he does not remember the fall and unsure if he hit his head. Son is at bedside providing history. Son states he did not witness the fall but was told the patient "slouched" before hitting the ground at low impact. He states no focal weakness was noticed by any family members. He also states the patient was able to bear weight but was not able to ambulate after the fall. Patient currently denies any complaints.hari . consult called with his own private ileana byers done Patient is neurologically intact. Mental status is at baseline. MRI, MRA are completed and do not reveal any acute findings. Carotid dopplers do not reveal significant stenosis. - no evidence of cerebrovascular disease or acute event. Aspirin and Lipitor may be discontinued when discharged. - will continue patient on Trazodone - will continue patient on Nuplazid 17mg BID as well - there is no clear evidence of a neurological cause for patient's fall and apparent change in mental status. patient and family advised to f/u with Dr. Anderson after discharge for continued management of patient's chronic neurological disease. Discharge Exam - Head Exam Head Exam: ATRAUMATIC, NORMOCEPHALIC - Eye Exam Eye Exam: EOMI, Normal appearance, PERRL Pupil Exam: NORMAL ACCOMODATION, PERRL - ENT Exam ENT Exam: Normal Oropharynx - Neck Exam Neck exam: Full Rom, Normal Inspection - Respiratory Exam Respiratory Exam: NORMAL BREATHING PATTERN - Cardiovascular Exam Cardiovascular Exam: REGULAR RHYTHM - GI/Abdominal Exam GI & Abdominal Exam: Normal Bowel Sounds - Rectal Exam Rectal Exam: NORMAL INSPECTION - Exam Exam: Circumcision, NORMAL INSPECTION External exam: NORMAL EXTERNAL EXAM Speculum exam: NORMAL SPECULUM EXAM Bimanual exam: NORMAL BIMANUAL EXAM - Neurological Exam Neurological exam: Alert, CN II-XII Intact, Normal Gait, Oriented x3, Reflexes Normal - Psychiatric Exam Psychiatric exam: Normal Affect, Normal Mood - Skin Skin Exam: Dry, Intact, Normal Color, Warm Discharge Plan - Discharge Medications Prescriptions: Aspirin [Aspirin Chewable] 81 mg PO DAILY #30 Atorvastatin [Lipitor] 40 mg PO DIN #30 tab - Follow Up Plan Condition: FAIR Disposition: HOME/ ROUTINE Instructions: Syncope (DC), Syncope (GEN) Additional Instructions: please take all medication prescribed also take safety precautions.call your doctor for any discomfort or go to your nearest emergency room.
== END 2016-10-25 14:41 | disposition home or self-care (01) | DRG 57 ==
LOC: ED 10:09 → ERH 12:00 → 2RNO 14:00
PROVIDERS: ADMIT Internal Medicine; ATTEND Internal Medicine
DX: G31.83 Neurocognitive disorder with Lewy bodies (principal); G45.0 Vertebro-basilar artery syndrome; F02.80 Dementia in other diseases classified elsewhere, unspecified severity, without behavioral disturbance, psychotic disturbance, mood disturbance, and anxiety; G20 Parkinson's disease; R55 Syncope and collapse; E03.9 Hypothyroidism, unspecified; M19.90 Unspecified osteoarthritis, unspecified site; D64.9 Anemia, unspecified; N40.0 Benign prostatic hyperplasia without lower urinary tract symptoms; E78.00 Pure hypercholesterolemia, unspecified; Z79.82 Long term (current) use of aspirin

== ENCOUNTER 2017-01-10 22:46 | Inpatient (IN) | payer MEDICARE ==
[2017-01-10 22:55] VITALS: BMI 25.1
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
--- NOTE | 2017-01-10 23:33 | ED PDOC ---
Arrival/HPI - General Chief Complaint: Altered Mental Status Time Seen by Provider: 01/10/17 23:08 - History of Present Illness Narrative History of Present Illness (Text): 01/10/17 23:18 Past Medical History - Cardiac Hx Cardiac Disorders: Yes Hx Pacemaker: No - Pulmonary Hx Respiratory Disorders: No - Neurological Hx Neurological Disorder: Yes Hx Dementia: Yes Hx Parkinson's Disease: Yes - HEENT Hx HEENT Disorder: Yes (eyeglasses) - Renal Hx Renal Disorder: No - Endocrine/Metabolic Hx Endocrine Disorders: Yes Hx Hypothyroidism: Yes - Hematological/Oncological Hx Blood Disorders: No - Integumentary Hx Dermatological Disorder: No Other/Comment: small 0.5cm round ibrahim colored hard growth to top of r hand and red dry scab small 0.5cm to top of right hand, brown skin discoloration under bottom left lip - Musculoskeletal/Rheumatological Hx Falls: Yes (today and past) - Gastrointestinal Hx Gastrointestinal Disorders: Yes Other/Comment: colonoscopy 08/2013 dx diverticulosis, hemorrhoids, hx colon polyps - Genitourinary/Gynecological Hx Genitourinary Disorders: Yes Hx Hematuria: Yes Hx Incontinence: Yes - Psychiatric Hx Psychophysiologic Disorder: Yes Hx Emotional Abuse: No Hx Physical Abuse: No Hx Substance Use: No - Anesthesia Hx Anesthesia: Yes Hx Anesthesia Reactions: No Hx Malignant Hyperthermia: No - Suicidal Assessment Feels Threatened In Home Enviroment: No Family/Social History Smoking Status: Unknown If Ever Smoked Hx Alcohol Use: No Hx Substance Use: No Allergies/Home Meds Allergies/Adverse Reactions: Allergies No Known Allergies Allergy (Verified 01/10/17 22:55) Home Medications: Home Meds Medication Instructions Recorded Confirmed Chondroitin Sulfate A Sodium 400 mg PO BID 10/23/16 10/23/16 [Chondroitin Sulfate] Finasteride [Proscar] 5 mg PO DAILY 10/23/16 10/23/16 Glucosamine Sulfate Dipot Chlr 500 mg PO BID 10/23/16 10/23/16 [Glucosamine] Levothyroxine [Synthroid] 50 mcg PO DAILY 10/23/16 10/23/16 Mirabegron [Myrbetriq] 0 mg PO .3-4 TIMES 10/23/16 10/23/16 Multivit-Min/FA/Lycopen/Lutein 1 tab PO DAILY 10/23/16 10/23/16 [Sentry Senior Multivit Caplet] Pimavanserin Tartrate [Nuplazid] 17 mg PO BID 10/23/16 10/23/16 traZODone [Desyrel] 100 mg PO HS 10/23/16 10/23/16 Medical Decision Making ED Course and Treatment: 01/10/17 23:18 Impression: Differential Diagnosis included but are not limited to: Plan: -- Reassess and disposition Prior Visits: Notes and results from previous visits were reviewed. On // patient came in complaining of . Patient was discharged * with prescription of . Progress Notes: Disposition/Present on Arrival - Present on Arrival History of DVT/PE: No History of Uncontrolled Diabetes: No Urinary Catheter: No History of Decub. Ulcer: No History Surgical Site Infection Following: None - Disposition Forms: [email or web address] ([place]i)
[2017-01-11 00:26] LABS: HEMOGLOBIN 12.7 g/dL (14.0-18.0); MEAN CELL VOLUME 92.7 fl (80.0-105.0); MEAN CORPUSCULAR HEMOGLOBIN 31.9 pg (25.0-35.0); MEAN CORPUSCULAR HGB CONC 34.4 g/dl (31.0-37.0); MEAN PLATELET VOLUME 12.2 fl (7.0-11.0); RBC 3.98 10^6/uL (3.5-6.1); RED CELL DISTRIBUTION WIDTH 12.4 % (11.5-14.5); WHITE BLOOD COUNT 8.8 10^3/ul (4.5-11.0)
[2017-01-11 01:48] LABS: ALB/GLOB RATIO 1.2 (1.1-1.8); ALBUMIN 3.6 g/dL (3.0-4.8); ALT/SGPT 30 U/L (7-56); AST/SGOT 25 U/L (15-59); BLOOD UREA NITROGEN 15 mg/dL (7-21); CALCIUM 8.9 mg/dL (8.4-10.5); GFR AFRICAN-AMERICAN > 60; GFR NON-AFRICAN AMERICAN > 60
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
[2017-01-11 03:27] LABS: URINE BILIRUBIN NEGATIVE (NEGATIVE); URINE BLOOD NEGATIVE (NEGATIVE); URINE GLUCOSE (UA) NEGATIVE (NEGATIVE); URINE LEUKOCYTE ESTERASE NEGATIVE Leu/uL (NEGATIVE); URINE NITRATE NEGATIVE (NEGATIVE); URINE PROTEIN TRACE mg/dL (<30 mg/dL); URINE UROBILINOGEN 0.2 E.U./dL (<1 E.U./dL)
[2017-01-11 03:28] LABS: URINE APPEARANCE CLEAR (CLEAR); URINE COLOR YELLOW (YELLOW)
[2017-01-11 03:50] LABS: URINE EPITHELIAL CELLS 0 - 2 /hpf (0-5); URINE RBC 0 - 2 /hpf (0-2); URINE WBC 0 - 2 /hpf (0-6)
--- NOTE | 2017-01-11 08:04 | RAD ---
HISTORY: confused COMPARISON: 10/23/2016 FINDINGS: LUNGS: No active pulmonary disease. PLEURA: No significant pleural effusion identified, no pneumothorax apparent. CARDIOVASCULAR: Normal. OSSEOUS STRUCTURES: No significant abnormalities. VISUALIZED UPPER ABDOMEN: Normal. OTHER FINDINGS: None. IMPRESSION: No active disease.
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
--- NOTE | 2017-01-12 01:08 | CARD ---
APPROVED REPORT EKG Measurement Heart [id number] <Conclusion> Normal sinus rhythm Inferior infarct, age undetermined Abnormal ECG
[2017-01-12] MEDS: Levothyroxine 50 MCG TAB PO SCH (06:43)
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
--- NOTE | 2017-01-13 01:30 | PN ---
DATE: 01/12/2017 SUBJECTIVE: The patient was seen and examined at the bedside, looking comfortable. No nausea, vomiting, diarrhea. No hematemesis, hematochezia. No headache, no dizziness. PHYSICAL EXAMINATION GENERAL: Text. VITAL SIGNS: Temperature 97, pulse 59, blood pressure 93/57, respiratory rate 19. HEENT: Head, normocephalic and atraumatic. Eyes, PERRLA. Extraocular muscles intact. Conjunctivae clear. Nose patent. Mucous membranes moist. NECK: Supple. No carotid bruits. No JVD, no thyromegaly. CHEST: Bilaterally symmetrical. HEART: S1, S2 positive. LUNGS: Clear to auscultation. ABDOMEN: Soft. Bowel sounds positive. No organomegaly. EXTREMITIES: No edema, no cyanosis. NEUROLOGIC: The patient is awake, alert. Moving all four extremities. No focal deficits. LABORATORY DATA: We do not have recent laboratory, but reviewed old labs. MEDICATIONS: Aspirin, Ativan, Lexapro, Seroquel, Synthroid, B1. ASSESSMENT AND PLAN: The patient is a 76-year-old male with anemia, proteinuria, advanced dementia, history of hypothyroidism, Parkinson's disease, questionable Lewy body dementia. Psychiatrist and neurologist both are on the case. MRI was done by Dr. Anderson on 10/28/2016 which was unremarkable. The patient was found wandering in the agitated state, aggressive towards the family. Got Seroquel. is adjusting Seroquel. Dr. Payne suggested CoQ10. Repeat labs. Out of bed. Physical therapy. GI and DVT prophylaxis. Aisha Iyer MD MTDGonzalez
[2017-01-13] MEDS: Levothyroxine 50 MCG TAB PO SCH (05:26)
[2017-01-13 07:52] LABS: HEMOGLOBIN 14.3 g/dL (14.0-18.0); MEAN CELL VOLUME 92.4 fl (80.0-105.0); MEAN CORPUSCULAR HGB CONC 34.6 g/dl (31.0-37.0); MEAN PLATELET VOLUME 11.8 fl (7.0-11.0); RBC 4.47 10^6/uL (3.5-6.1); RED CELL DISTRIBUTION WIDTH 12.2 % (11.5-14.5); WHITE BLOOD COUNT 7.7 10^3/ul (4.5-11.0)
[2017-01-13 08:13] LABS: % IRON SATURATION 33 % (20-55); IRON 82 ug/dL (45-180); TOTAL IRON BINDING CAPACITY 250 ug/dL (261-462)
[2017-01-13 12:09] LABS: FOLATE 18.7 ng/mL
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
[2017-01-14] MEDS: Levothyroxine 50 MCG TAB PO SCH (06:10)
--- NOTE | 2017-01-14 10:38 | CP.PCM.PCO ---
Physician Communication Note - Physician Communication Note Physician Communication Note: Pt too sedated for interview, will endorse to Dr. Moctezuma to f/u in AM
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
--- NOTE | 2017-01-15 02:44 | PN ---
DATE: 01/14/2017 The patient is 76 years old male. SUBJECTIVE: The patient was seen and examined at the bedside on 01/14/2017, Early afternoon, looks a little bit confused. No nausea, vomiting, or diarrhea. No hematuria or hematochezia. No swelling of the legs. As per nurse Jones, the patient's family came today to see him. As the family left, he got very aggressive, wanted to walk around, and wanted to go with the family. Finally, they had to deposit strain. They called in the house physician regarding the family to get the order. PHYSICAL EXAMINATION: VITAL SIGNS: Temperature is 97.5, pulse 58, blood pressure 127/74, and respiratory rate 18. HEENT: Head; normocephalic and atraumatic. Eyes; PERRLA. Extraocular muscles intact. Conjunctivae clear. Nose patent. Mucous membranes moist. NECK: Supple. No carotid bruits. No JVD or thyromegaly. CHEST: Bilaterally symmetrical. HEART: S1 and S2 positive. LUNGS: Clear to auscultation. ABDOMEN: Soft. Bowel sounds present. No organomegaly. EXTREMITIES: No edema, no cyanosis. NEUROLOGIC: The patient is awake and alert but confused. He is not cooperative for complete neurological examination. MEDICATIONS: Aspirin, Ativan, Celexa, Lexapro, Proscar, Seroquel, levothyroxine, and thiamine. LABORATORY DATA: White blood cells 7.7, hemoglobin 14.3, hematocrit 41.3, and platelets 153. Sodium 138, potassium 3.7, BUN 15, and creatinine 0.9. TSH 5.27. ASSESSMENT AND PLAN: The patient is a 76-year-old male with anemia improving; hypothyroidism, and proteinuria, seen with Dr. Tex Gary, history of advanced dementia, parkinsonism, was admitted for anxiety, wandering around the street and very aggressive to the family. Now, the psychiatrist is on the case. GI and DVT prophylaxis. I think the patient should go to the psych department for the adjustment of the medicine. Medically, he looks like fine. We will follow. Aisha Iyer MD [facility] # [id number] ALESSANDRA
[2017-01-15] MEDS: Levothyroxine 50 MCG TAB PO SCH (05:32)
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
--- NOTE | 2017-01-16 01:04 | PN ---
SUBJECTIVE: The patient is a 76-year-old male. The patient was seen and examined at the bedside, looking comfortable. No nausea, vomiting, diarrhea. No hematemesis, hematochezia. No swelling of the legs. No chest pain, no palpitation. The patient was anxious late evening and then Dr. Hooper gave order of [place], now the patient is in restraint. PHYSICAL EXAMINATION: VITAL SIGNS: Temperature 97.3, pulse 65, blood pressure 144/82, respiratory rate 18. HEENT: Head, normocephalic and atraumatic. Eyes, PERRLA. Extraocular muscles intact. Conjunctivae clear. Nose patent. Mucous membrane moist. NECK: Supple. No carotid bruits. No thyromegaly. CHEST: Bilaterally symmetrical. HEART: S1 and S2 positive. LUNGS: Clear to auscultation. ABDOMEN: Soft. Bowel sounds positive. No organomegaly. EXTREMITIES: No edema, no cyanosis. NEUROLOGICAL: The patient is awake and alert. Moving all 4 extremities. No focal deficit. MEDICATIONS: Aspirin, Ativan, Celexa, Pepcid, Proscar, Seroquel, levothyroxine and thiamine. LABORATORY DATA: White blood cells 7.7, hemoglobin 14.3, hematocrit 41.3 and platelets 153. ASSESSMENT AND PLAN: The patient is a 76-year-old male with multiple medical problems; anemia, improving; hypothyroidism; proteinuria; altered mental status; anxiety; parkinsonism, psychiatrist is on the case. Neurologist saw the patient one time, now I am calling to re-consult because of the patient's altered mental status or slightly advanced dementia. I will consult with cardiology also. GI and DVT prophylaxis. Continue present treatment. Continue aspirin, Celexa, Lexapro, Seroquel and levothyroxine for hypothyroidism. We will follow. Aisha Iyer MD
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
[2017-01-16 08:32] VITALS: RESP 18
[2017-01-16 17:18] VITALS: BP 124/77; PULSE 60; TEMP 98.6; O2SAT 95
--- NOTE | 2017-01-16 18:05 | CP.PCM.PN ---
Subjective - Date & Time of Evaluation Date of Evaluation: 01/16/17 Time of Evaluation: 10:30 - Subjective Subjective: Patient has been seen and examined. Patient unable to provide ROS due to AMS/ Expressive Aphasia. Objective - Vital Signs/Intake and Output Vital Signs (last 24 hours): Temp Pulse Resp BP Pulse Ox 98.6 F 60 18 124/77 95 01/16/17 16:30 01/16/17 16:30 01/16/17 16:30 01/16/17 16:30 01/16/17 16:30 Intake and Output: 01/16/17 01/16/17 06:59 18:59 Intake Total 0 Balance 0 - Medications Medications: Current Medications Aspirin (Aspirin Chewable) 81 mg PO DAILY [facility] Last Admin: 01/16/17 11:45 Dose: 81 mg Citalopram Hydrobromide (Celexa) 5 mg PO DAILY [facility] Last Admin: 01/16/17 11:45 Dose: 5 mg Famotidine (Pepcid) 40 mg PO HS [facility] Last Admin: 01/15/17 21:40 Dose: 40 mg Finasteride (Proscar) 5 mg PO DAILY [facility] Last Admin: 01/16/17 11:45 Dose: 5 mg Levothyroxine Sodium (Synthroid) 50 mcg PO 0600 [facility] Last Admin: 01/15/17 05:32 Dose: 50 mcg Lorazepam (Ativan) 0.5 mg PO TID PRN; Protocol PRN Reason: anxiety/agitation Last Admin: 01/15/17 17:59 Dose: 0.5 mg Quetiapine Fumarate (Seroquel) 25 mg PO DAILY [facility] PRN Reason: Protocol Last Admin: 01/16/17 11:45 Dose: 25 mg Quetiapine Fumarate (Seroquel) 50 mg PO HS [facility] PRN Reason: Protocol Last Admin: 01/15/17 21:41 Dose: 50 mg Thiamine HCl (Vitamin B1 Tab) 100 mg PO DAILY [facility] Last Admin: 01/16/17 11:45 Dose: 100 mg - Labs Labs: 01/13/17 07:46 - Head Exam Head Exam: ATRAUMATIC, NORMOCEPHALIC - Additional Findings Additional findings: Muscle Rigidity Assessment and Plan - Assessment and Plan (Free Text) Assessment: 76 year old male with PMHx of Dementia and Parkinsons. Being seen for the treatment and evaluation of AMS Plan: 1. AMS likely 2/2 Dementia -Monitor Vitals -Possible readjustment of medication if showing symptoms of NMS or SS. -Transfer to Psych Unit. Patient seen, reviewed, and discussed with Attending. Daron Leyva PGY-1
--- NOTE | 2017-01-16 18:18 | CON ---
DATE: 01/15/2017 INDICATIONS: Altered mental status, falls, rule out syncope. HISTORY OF PRESENT ILLNESS: This is a 76-year-old man, known to me, admitted on the with altered mental status, agitation, confusion, currently sedated on . Information is from the chart and his bedside nurses. He was admitted on the with altered mental status after he found wandering the streets. Apparently, he had exhibited aggressive behavior at home. He has a history of Alzheimer's dementia with Lewy body disease and Parkinson's disease. He has been under the care of Dr. Anderson as well as Dr. Payne and Psychiatry. He has been sedated because of agitation and aggressive behavior. There is no report in the chart of chest pain, shortness of breath, orthopnea, PND, dizziness, vertigo, edema, fever, chills, cough, sputum production, hemoptysis, abdominal pain, nausea, vomiting, diarrhea, constipation or melena. PAST MEDICAL HISTORY: Notable for dementia, Parkinson's disease, hypertension, TIA, hypothyroidism, diverticulosis, colonic polyps, falls, urinary incontinence, cerebrovascular disease. There is no history of rheumatic fever, myocardial infarction, angina, congestive heart failure, arrhythmia, diabetes or gout. MEDICATIONS: At this time include aspirin, Ativan, Celexa, Pepcid, Proscar, Seroquel, Synthroid, vitamin B1. ALLERGIES: THERE ARE NO MEDICATION ALLERGIES REPORTED. SOCIAL HISTORY: He lives at home with his family. He does not smoke, does not drink alcohol. FAMILY HISTORY: Noncontributory. REVIEW OF SYSTEMS: Unavailable because he is sedated. PHYSICAL EXAMINATION: GENERAL: Reveals an elderly male, lying in bed with Claudia poncho, in no acute distress, sedated. VITAL SIGNS: Notable for pulse of 68, afebrile, blood pressure 158/90, respirations 18-20, O2 saturation 96% on room air. HEENT AND NECK: Reveals no neck pain, distention, thyromegaly or carotid bruits. Mucous membranes moist. Conjunctivae pink. Neck is supple. LUNGS: Lung casanova are clear. HEART: Revealed normal first and second heart sounds. ABDOMEN: Soft. Bowel sounds are present. No mass, organomegaly, tenderness, rebound, or guarding. NEUROLOGIC: He is sedated. PSYCHIATRIC: Sedated. SKIN: Warm and dry. No rash or cellulitis. LABORATORY DATA AND IMAGING: A CT scan of the head is noted, there were no acute findings. A portable chest x-ray revealed no active disease. An EKG demonstrates regular sinus rhythm, inferior wall myocardial infarction,old, no change from prior EKG. White count normal, hemoglobin 14.3, hematocrit 41.3, platelet count normal. Electrolytes, BUN, creatinine, blood sugar, LFTs, calcium, hemoglobin A1c all within normal limits. Total cholesterol 155, triglycerides 97, LDL 90. Vitamin B12 and folate are normal. TSH is high at 5.27. Urinalysis is noted. ASSESSMENT: Dannie Smith is a 76-year-old man with advanced dementia, altered mental status, aggressive behavior, diagnosis of Alzheimer's disease with Lewy body features and Parkinson's disease with history of transient ischemic attack and a history of falls. PLAN: At this point, I do not get any sense that there is active syncope. His fall seems to be related to his other neurologic problems with Parkinson's disease and dementia. He has been treated by Neurology and Psychiatry. He is currently sedated. Plans will be made for long-term care. I would not order any cardiac tests at this time, but rather would pursue a conservative course with regard to any underlying cardiac disease. He is on aspirin. Statin therapy should be considered. Aman Gonsalez MD
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
== END 2017-01-16 20:48 | DRG 57 ==
LOC: ED 22:46 → ERH 01-11 03:06 → 2RSO 01-11 03:46 → OBSVTOIN 01-12 06:49 → 3RSO 01-16 00:34
PROVIDERS: ADMIT Internal Medicine; ATTEND Internal Medicine
DX: G30.9 Alzheimer's disease, unspecified (principal); F02.81 Dementia in other diseases classified elsewhere, unspecified severity, with behavioral disturbance; G31.83 Neurocognitive disorder with Lewy bodies; R47.01 Aphasia; W19.XXXA Unspecified fall, initial encounter; D64.9 Anemia, unspecified; E03.9 Hypothyroidism, unspecified; F32.89 Other specified depressive episodes; F41.9 Anxiety disorder, unspecified; I10 Essential (primary) hypertension; I67.9 Cerebrovascular disease, unspecified; Z79.899 Other long term (current) drug therapy; Z86.010 Personal history of colon polyps; Z86.73 Personal history of transient ischemic attack (TIA), and cerebral infarction without residual deficits; Z91.81 History of falling; Z91.83 Wandering in diseases classified elsewhere; D49.89 Neoplasm of unspecified behavior of other specified sites; Z87.19 Personal history of other diseases of the digestive system; R31.9 Hematuria, unspecified; R32 Unspecified urinary incontinence; R40.2412 Glasgow coma scale score 13-15, at arrival to emergency department; I25.2 Old myocardial infarction

== ENCOUNTER 2017-01-16 20:45 | Inpatient (IN) | payer MEDICARE ==
[2017-01-16] MEDS ORDERED: Alum-Mag Hydrox-Simethicone Susp (30 mL) PO PRN (21:27)
[2017-01-16] MEDS ORDERED: Magnesium Hydroxide Susp 30 ml UD PO PRN (21:27)
--- NOTE | 2017-01-16 23:39 | PCM.BM ---
<Ko Barragan - Last Filed: 01/16/17 23:36> Treatment Plan Problems - Problems identified on initial assessmt dementia Date Initiated: 01/16/17 Time Initiated: 20:30 Assessment reference: NA Status: Active Priority: 1 anxiety Date Initiated: 01/16/17 Time Initiated: 20:30 Assessment reference: NA Status: Active Priority: 2 Treatment assets and liabiliti Patient Assests: good support system Patient Liabilities: visual impairment - Milieu Protocol Maintain good personal hygiene: daily Encourage regular showers, daily Remind patient to perform daily oral care, daily Assist patient to perform ADL's Conduct patient checks and document Observation sheet: Q15 minutes Maintain personal safety: every shift Educate patient to report safety concerns to staff, every shift Monitor environment for contraband/sharps Medication safety: Monitor for expected outcome, potential side effects: every shift, Assess barriers to learning: every shift, Assess readiness for medication education: every shift Discharge/Continuing Care - Education Needs Education Needs: Family Medication, Family Nutrition, Patient Activities of Daily Living - Discharge Discharge Criteria: Free of agitation <Zoila Gage - Last Filed: 01/19/17 10:48> Family Contact Family contact: Telephone contact initiated by staff Family contact name: Dannie Smith Jr. (son) Family contacted how many times per week?: 2 - Goals for Treatment Patient's family/SO goals for treatment: "To return home without lashing out."
[2017-01-17] MEDS: Levothyroxine 50 MCG TAB PO SCH (06:04)
--- NOTE | 2017-01-17 15:56 | PCM.PSYCH ---
Initial Psychiatric Evaluation - Initial Psychiatric Evaluation Legal Status: Other Chief Complaint (in patient's own words): Patient is being evaluated and treated for AMS Patient's Reaction to Hospitalization: Patient is unaware of why he is in the hospital History of Present Illness and Precipitating Events: Patient is a 76 year old male with a reported history of lewy body dementia with Parkinsonism features. Patient was originally admitted on for confusion, AMS, agitation, and restless behavior. He was admitted for the to the psych unit today for the same symptoms. Please see Consult note from Dr. Tanna Goddard on 01/12/17 for a more detailed history of event. Interview today was limited due to patient's AMS. During interview today patient denied symptoms of depression, anxiety, or anger. Patient did state that he is worried about his current condition, and is disappointed in himself for letting himself get to his current state. Past Psychiatric History: Patient has not past Psych history prior to his admission to [facility] this month. But does have a history of Lewy Body Dementia with Parkinsonism features. He did state that he has seen a therapist or psychologist 3-4 years ago [place] on [place] between and [address] [place] [id number]. He doesnt remember why he saw the practitioner or the name. PMHx: HTN, Hypothyroidism, dementia, fall, history of diverticulitis, hemorrhoids, colon polyps, polypectomy, hx of hematuria, and urinary incontinence Family Hx: Non-contributory Allergies: No medication Allergy Social Hx: Reported that he lives with his of 65 years (Patient is 76). Has 3 children (Dannie, Jay, and Letty). Denies tobacco or illicit drug use. Admits to occasional alcohol use. 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 Medications: Medications reviewed on Chart. Current Medications: Active Medications Generic Name Dose Route Start Last Admin Trade Name Freq PRN Reason Stop Dose Admin Acetaminophen 650 mg 01/16/17 21:27 Tylenol 325mg Tab PO Q4 PRN Pain, moderate (4-7) Al Hydrox/Mg Hydrox/Simethicone 30 ml 01/16/17 21:27 Maalox Plus 30 Ml PO DAILY PRN Upset Stomach Aspirin 81 mg 01/17/17 08:00 01/17/17 11:03 Aspirin Chewable PO 81 mg DAILY NATHALIE Administration Citalopram Hydrobromide 5 mg 01/17/17 08:00 01/17/17 11:03 Celexa PO 5 mg DAILY NATHALIE Administration Famotidine 40 mg 01/16/17 22:00 01/16/17 23:03 Pepcid PO 40 mg HS NATHALIE Administration Finasteride 5 mg 01/17/17 08:00 01/17/17 11:03 Proscar PO 5 mg DAILY NATHALIE Administration Levothyroxine Sodium 50 mcg 01/17/17 06:00 01/17/17 06:04 Synthroid PO 50 mcg 0600 NATHALEI Administration Lorazepam 0.5 mg 01/16/17 21:14 01/17/17 11:03 Ativan PO 0.5 mg TID PRN Administration Agitation Protocol Magnesium Hydroxide 30 ml 01/16/17 21:27 Milk Of Magnesia PO DAILY PRN Constipation Quetiapine Fumarate 50 mg 01/16/17 22:00 01/16/17 23:03 Seroquel PO 50 mg HS NATHALIE Administration Protocol Risperidone 0.5 mg 01/17/17 22:00 Risperdal Tab PO AMHS NATHALIE Protocol Thiamine HCl 100 mg 01/17/17 08:00 01/17/17 11:04 Vitamin B1 Tab PO 100 mg DAILY NATHALIE Administration Past Psychiatric History - Past Psychiatric History Prior Professional Help: States he saw Psychologist or Thereapist 3-4 years ago History of Abuse: Denies History of ETOH/Drug Use: Occasional Pertinent Medical Hx (Current Medical&Sleep Prob, Allergies): Allergies Allergy/AdvReac Type Severity Reaction Status Date / Time No Known Allergies Allergy Verified 01/16/17 21:04 Aspirin [Aspirin Chewable] 81 mg PO DAILY 01/16/17 Citalopram [celeXA] 5 mg PO DAILY tab 01/16/17 Famotidine [Pepcid] 40 mg PO HS tab 01/16/17 Finasteride [Proscar] 5 mg PO DAILY tab 01/16/17 LORazepam [Ativan] 0.5 mg PO TID PRN tab 01/16/17 Levothyroxine [Synthroid] 50 mcg PO 0600 tab 01/16/17 QUEtiapine [Seroquel] 25 mg PO DAILY tab 01/16/17 QUEtiapine [Seroquel] 50 mg PO HS tab 01/16/17 Thiamine [Vitamin B1 Tab] 100 mg PO DAILY tab 01/16/17 Review of Systems - Review of Systems Systems not reviewed;Unavailable: Altered Mental Status Review of Systems: ROS difficult to attain due to AMS Mental Status Examination - Personal Presentation Personal Presentation: Impairment in gait - Affect Affect: Flat - Motor Activity Motor Activity: Calm - Reliability in Providing Information Reliability in Providing Information: Poor, due to cognitve impairment - Speech Speech: Disorganized, Relevant, Tangential, Incoherent - Mood Mood: Neutral - Formal Thought Process Formal Thought Process: Loosening of associations - Hallucinations/Delusions Additional comments: Responding to internal stimuli - Obsessions/Compulsions Obsessions: None Compulsions: None - Cognitive Functions Orientation: Person Sensorium: Lethargic Attention/Concentration: Easily distracted Judgement: Imparied, as evidence by: Poor judgement, Imparied, as evidence by: Lack of insight into illness Memory: Recent impaired, as evidence by: Inability to recall events of the day - Risk Additional comments: NO suicidal or homicidal ideation. - Strength & Assets Inventory Strength & Assets Inventory: Family support, Cooperative - Limitations Limitations: Decreased memory, recent DSM 5 DX - DSM 5 DSM 5 Diagnosis: Dementia unspecified with behavioral features. - Recommended/Plan of Treatment Treatment Recommendations and Plan of Treatment: - Moniter pt every 15 min for safety -Med Management -Group Therapy -Medicine Consult -SW consult Projected ELOS: 7 days - Smoking Cessation Smoking Cessation Initiated: No Reason for not providing: Patient doesn't smoke.
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
[2017-01-18] MEDS: Levothyroxine 50 MCG TAB PO SCH (09:31)
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
[2017-01-19] MEDS: Levothyroxine 50 MCG TAB PO SCH (07:21)
--- NOTE | 2017-01-19 10:33 | PCM.PYCHPN ---
Psychiatric Progress Note - Psychiatric Progress Note Patient seen today, length of contact: 30 Patient Chief Complaint: Patient is being evaluated and treated for AMS Problems Identified/Issues Discussed: Patient has been seen and examined today. Interview was limited due to AMS 2/2 to his Lewy Body dementia. He was able to deny and feelings of depression, anxiety, or agitation. Patient did not remember seeing his or daughter yesterday. Medication Change: Yes (Stopped Celexa and started Wellbutrin 75 BID) Mental Status Examination - Cognitive Function Memory: Impaired (Patient could not remember seeing family yesterday) Attention: Poor Concentration: Poor Association: Loose Fund of Knowledge: Poor Decription of patient's judgement and insights: Impaired insight and judgement Addtional comments: Patient is disoriented to person, place, and time. - Mood Mood: Neutral - Affect Affect: Flat - Speech Speech: Soft - Language Language: Aphasia - Formal Thought Process Formal Thought Process: Loosening of associations - Suicidal Ideation Suicidal Ideation: No - Homicidal Ideation Homicidal Ideation: No Goal/Treatment Plan - Goal/Treatment Plan Need for Continued Stay: Remain at risks for inpatient hospitalization, Severe functional impairment Progress Toward Problem(s) and Goals/Treatment Plan: - Moniter pt every 15 min for safety -Med Management -Group Therapy -Medicine Consult - consult
--- NOTE | 2017-01-19 21:58 | PN ---
SUBJECTIVE: The patient is a 76-year-old male. The patient was seen and examined at the bedside, looks comfortable. No nausea, vomiting or diarrhea. No hematemesis or hematochezia. No swelling of the legs. No chest pain and no palpitation. No headache or dizziness. PHYSICAL EXAMINATION VITAL SIGNS: Temperature 97.8, pulse 81, blood pressure 145/92 and respiratory rate 16. HEENT: Head, normocephalic and atraumatic. Eyes, PERRLA. Extraocular muscles intact. Conjunctivae clear. Nose patent. Mucous membrane moist. NECK: Supple. No carotid bruits. No thyromegaly. CHEST: Bilaterally symmetrical. HEART: S1 and S2 positive. LUNGS: Clear to auscultation. ABDOMEN: Soft. Bowel sounds positive. No organomegaly. EXTREMITIES: No edema and no cyanosis. NEUROLOGICAL: The patient is awake and alert. Moving all 4 extremities. No focal deficit. MEDICATIONS: Aspirin, Ativan, Haldol, Maalox, magnesium oxide, Pepcid, Proscar, Risperdal, Seroquel, Synthroid and Tylenol. LABORATORY DATA: We do not have the labs today, but I reviewed old labs. ASSESSMENT AND PLAN: The patient is a 76-year-old male with advanced dementia, parkinsonism, hypothyroidism, diverticulitis, hemorrhoids, colon polyp removal, hematuria, incontinence, depression and anxiety, is in the psych department and getting treatment from the psychiatrist. Dr. Payne saw the patient. Continue present treatment. GI and DVT prophylaxis. Get labs. We will follow up. Aisha Iyer MD
[2017-01-20 08:37] LABS: HEMATOCRIT 41.7 % (42.0-52.0); MEAN CELL VOLUME 91.4 fl (80.0-105.0); MEAN CORPUSCULAR HEMOGLOBIN 32.5 pg (25.0-35.0); MEAN CORPUSCULAR HGB CONC 35.5 g/dl (31.0-37.0); MEAN PLATELET VOLUME 12.2 fl (7.0-11.0)
[2017-01-20 08:47] LABS: BLOOD UREA NITROGEN 20 mg/dL (7-21); CARBON DIOXIDE 27 mmol/L (21-33); CHLORIDE 103 mmol/L (95-110); GFR AFRICAN-AMERICAN > 60; GLUCOSE,RANDOM 80 mg/dL (70-110); POTASSIUM 3.8 mmol/L (3.6-5.0); SODIUM 140 mmol/L (132-148)
--- NOTE | 2017-01-20 08:47 | PCM.PYCHPN ---
Psychiatric Progress Note - Psychiatric Progress Note Patient seen today, length of contact: 25 min Problems Identified/Issues Discussed: I reviewed assessment and recent notes. Patient's mood has been labile and unpredictable on the unit. Staff notes indicate he has refused medications and be restless, irritable and explosive. I attempt to interview patient at bedside. He is quite tired and I need to repeat my questions multiple times. Patient remains confused and disoriented. Speech is soft. He cannot provide the correct month for me however correctly reports our location and year. He denies depression, pain or side effects. He doesn't appear to be in any current distress. Behavior still requires 1:1 monitoring. Diagnostic Results: Lewy Body dementia with behavioral disturbance Medication Change: No ( ) Medical Record Reviewed: Yes Mental Status Examination - Cognitive Function Memory: Impaired (Patient could not remember seeing family yesterday) Attention: Poor Concentration: Poor Association: Loose Fund of Knowledge: Poor - Mood Mood: Neutral - Affect Affect: Flat, Other (labile and unpredictable) - Speech Speech: Soft - Language Language: Aphasia - Formal Thought Process Formal Thought Process: Loosening of associations - Suicidal Ideation Suicidal Ideation: No - Homicidal Ideation Homicidal Ideation: No Goal/Treatment Plan - Goal/Treatment Plan Need for Continued Stay: Remain at risks for inpatient hospitalization, Severe functional impairment Progress Toward Problem(s) and Goals/Treatment Plan: * c/w current tx and plan * Vitals reviewed and noted below: Selected Entries 01/18/17 01/18/17 07:07 16:03 Temperature 97.8 F Pulse Rate 64 81 Respiratory 16 Rate Blood Pressure 150/86 145/92 H * New weekend labs noted below: Laboratory Results - last 24 hr 01/20/17 07:30 WBC 8.0 RBC 4.56 Hgb 14.8 Hct 41.7 L MCV 91.4 MCH 32.5 MCHC 35.5 RDW 12.0 Plt Count 164 MPV 12.2 H
[2017-01-20] MEDS: Levothyroxine 50 MCG TAB PO SCH (13:14)
--- NOTE | 2017-01-20 15:07 | PN ---
DATE: 01/18/2017 SUBJECTIVE: The patient was seen and examined on 01/08/2017, looking comfortable. No nausea, vomiting or diarrhea. No hematuria or hematochezia. No swelling of the legs. No chest pain. No palpitation. No headache or dizziness. PHYSICAL EXAMINATION: VITAL SIGNS: Temperature 97.8, pulse 64, blood pressure 120/80 and respiratory rate 16. HEENT: Head normocephalic and atraumatic. Eyes, PERRLA. Extraocular muscles intact. Conjunctivae clear. Nose patent. Mucous membrane moist. NECK: Supple. No carotid bruits, JVD, thyromegaly. CHEST: Bilaterally symmetrical. HEART: S1 and S2 positive. LUNGS: Clear to auscultation. ABDOMEN: Soft. Bowel sounds positive. No organomegaly. EXTREMITIES: No edema and no cyanosis. NEUROLOGICAL: The patient is awake and alert. Moving all 4 extremities. No focal deficit. MEDICATIONS: Aspirin, lorazepam, Haldol and milk of magnesia. ASSESSMENT AND PLAN: Mr. Dannie Smith is a 76-year-old male with multiple medical problems, had advanced dementia turning into aggressive behavior so the patient was admitted on the medical floor for altered mental status, got treatment, seen by neurologist , sent to psych department. Dr. Moctezuma is taking care of this patient. The patient has history of hypertension, hypercholesterolemia, hypothyroidism, anxiety, gastroesophageal reflux disease, dyspepsia. We will continue present treatment, gastrointestinal and deep vein thrombosis prophylaxis. Appreciate psych input. d/d with the patient's daughter and . We will follow up. Aisha Iyer MD MTDGonzalez
--- NOTE | 2017-01-21 02:00 | PN ---
SUBJECTIVE: The patient was seen and examined at the bedside, looking comfortable. No nausea, vomiting or diarrhea. No hematemesis or hematochezia. No swelling of the legs. No chest pain, no palpitation. No headache or dizziness. PHYSICAL EXAMINATION: VITAL SIGNS: Temperature 97.8, pulse 74, blood pressure 145/92, respiratory rate 16. HEENT: Head normocephalic and atraumatic. Eyes: PERRLA. Extraocular muscles intact. Conjunctivae clear. Nose patent. NECK: Supple. No carotid bruits, JVD or thyromegaly. CHEST: Bilaterally symmetrical. HEART: S1 and S2 positive. LUNGS: Clear to auscultation. ABDOMEN: Soft. Bowel sounds present. No organomegaly. EXTREMITIES: No edema, no cyanosis. NEUROLOGIC: The patient is awake and alert. Moving all 4 extremities. No focal deficit. MEDICATIONS: Aspirin, Ativan, Haldol, Maalox, milk of magnesia, Pepcid, Risperdal, Synthroid, Tylenol, and Wellbutrin. LABORATORY DATA: White blood cells 8.0, hemoglobin 14.8, hematocrit 41.7 and platelets 164. Sodium 140, potassium 3.8, BUN 20 and creatinine 0.8, glucose 80. ASSESSMENT AND PLAN: The patient is a 76-year-old male with history of anxiety, depression, altered mental status, is on one-to-one. His dementia is turning into aggressive behavior that is why he is on the psych floor under Dr. Moctezuma's service. The patient has history of hypertension, hypercholesterolemia, hypothyroidism, gastroesophageal reflux disease, dyspepsia. We will continue present treatment. Gastrointestinal and deep vein thrombosis prophylaxis. Get labs. Aisha Iyer MD
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
[2017-01-21] MEDS: Levothyroxine 50 MCG TAB PO SCH (10:14)
[2017-01-22] MEDS: Levothyroxine 50 MCG TAB PO SCH (06:48)
--- NOTE | 2017-01-22 08:20 | PN ---
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 The patient is on one-on-one supervision to prevent falls. He needs assistance with ADLs. He continues to exhibit liability intermittently. It is challenging to get him to take his medications, which presently consists of Pepcid 40 mg at bedtime, Proscar 5 mg daily, Risperdal 0.5 mg a.m. and at bedtime, Synthroid 50 mcg q. day, Seroquel 50 mg at bedtime, Wellbutrin 75 mg b.i.d. There are no new laboratory values. PHYSICAL EXAMINATION: VITAL SIGNS: Blood pressure 150/86, pulse 64, temperature 97.8, respiratory rate 16. Ihsan Moctezuma MD/ PhD
--- NOTE | 2017-01-22 11:41 | PN ---
DATE: 01/21/2017 SUBJECTIVE: The patient is a 76-year-old male. The patient was seen and examined on 01/21/2017 on the bedside looking comfortable. No nausea, vomiting, or diarrhea. No hematuria or hematochezia. No swelling of the legs. No chest pain. No palpitation. No headache. No dizziness. PHYSICAL EXAMINATION: VITAL SIGNS: Temperature 97.4, pulse is 67, blood pressure 141/92, and respiratory rate 20. HEENT: Head is normocephalic, atraumatic. Eyes, PERRLA. Extraocular muscles are intact. Conjunctivae are clear. Nose is patent. NECK: Supple. No carotid bruits, JVD, or thyromegaly. CHEST: Bilateral symmetrical. HEART: S1 and S2 positive. LUNGS: Clear to auscultation. ABDOMEN: Soft. Bowel sounds positive. No organomegaly. EXTREMITIES: No edema and no cyanosis. NEUROLOGICAL: The patient is awake and alert. Moving all 4 extremities. No focal deficit. MEDICATIONS: Aspirin, Ativan, Haldol, milk of magnesia, Pepcid, Proscar, Seroquel, and Synthroid. LABORATORY DATA: We do not have recent labs today, but I reviewed old labs. ASSESSMENT AND PLAN: Mr. Dannie Smith is a 76-year-old male with multiple medical problems; has anxiety, depression, altered mental status, advanced dementia, turning into aggressive behavior, especially with the family, now admitted to the psych floor under Dr. Moctezuma's service. The patient has history of hypertension, hypercholesterolemia, hypothyroidism, gastroesophageal reflux disease, and dyspepsia. GI and DVT prophylaxis. Repeat labs. We will follow. Aisha Iyer MD
--- NOTE | 2017-01-22 17:40 | PCM.PYCHPN ---
Psychiatric Progress Note - Psychiatric Progress Note Patient seen today, length of contact: 25 Patient Chief Complaint: Disorganized thinking with intermittent agitation Problems Identified/Issues Discussed: Patient appears to have a demented for disordermore specifically a Lewy body dementia with behavioral disturbance He gets some relief from major tranquilizers but exhibits rigidity. A treatment dilemma. [id number] is presently being maintained on Seroquel 12.5 mg twice a day and 50 mg at bedtime also on Wellbutrin 75 mg twice a day Medical Problems: Hypertension, hypercholesterolemia, hypothyroidism, GERD, dyspepsia Diagnostic Results: All recent evaluations DSM 5 Symptoms Update: Range difficult to manage as intermittent outbursts. Exhibits rigidity easily. Medication Change: Yes (d/c risperdal, increased seroquel on 01/21/17) Medical Record Reviewed: Yes Consults ordered or reviewed: Reviewed notes over the past weekend Mental Status Examination - Cognitive Function Memory: Impaired (Patient could not remember seeing family yesterday) Attention: Poor Concentration: Poor Association: Loose Fund of Knowledge: Poor - Mood Mood: Neutral - Affect Affect: Flat, Other (labile and unpredictable) - Speech Speech: Soft - Language Language: Aphasia - Formal Thought Process Formal Thought Process: Paranoia, Loosening of associations - Suicidal Ideation Suicidal Ideation: No - Homicidal Ideation Homicidal Ideation: No Goal/Treatment Plan - Goal/Treatment Plan Need for Continued Stay: Remain at risks for inpatient hospitalization, Severe functional impairment Progress Toward Problem(s) and Goals/Treatment Plan: We'll continue to work on symptom stabilization.. To consider asking pharmacy to look into the availability of new drug nuplazid
[2017-01-23] MEDS: Levothyroxine 50 MCG TAB PO SCH (05:00)
[2017-01-23 07:08] VITALS: O2SAT 97
--- NOTE | 2017-01-23 08:10 | PN ---
DATE: 01/22/2017 SUBJECTIVE: The patient is a 76-year-old male. The patient is seen and examined on 01/22/2017. No nausea, vomiting or diarrhea. No hematuria or hematochezia. No swelling of the legs. No chest pain. No palpitation. No headache. No dizziness. PHYSICAL EXAMINATION: VITAL SIGNS: Temperature 97.5, pulse 82, blood pressure 138/84, and respiratory rate 16. HEENT: Head is normocephalic, atraumatic. Eyes, PERRLA. Extraocular muscles are intact. Conjunctivae are clear. Nose is patent. Mucous membrane moist. NECK: Supple. No carotid bruits. No JVD or thyromegaly. CHEST: Bilateral symmetrical. HEART: S1 and S2 positive. LUNGS: Clear to auscultation. ABDOMEN: Soft. Bowel sounds positive. No organomegaly. EXTREMITIES: No edema and no cyanosis. NEUROLOGICAL: The patient is awake and alert. Follow simple commands. MEDICATIONS: Aspirin, Ativan, Milk of Magnesia, Pepcid, Proscar and Seroquel. LABORATORY DATA: We do not have recent labs today, but I reviewed old labs. ASSESSMENT AND PLAN: Mr. Dannie Smith is a 76-year-old male with history of dementia. Now, he has altered mental status. Was trying to confront his family. Has multiple medical problems, depression, anxiety. He has aggressive behavior history in the past. Gastrointestinal and deep vein thrombosis prophylaxis. Repeat labs. We will follow up. Aisha Iyer MD
[2017-01-24] MEDS: Levothyroxine 50 MCG TAB PO SCH (07:14)
--- NOTE | 2017-01-24 08:48 | PN ---
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 The patient also has multiple medical problems. He has been aggressive in the recent past. He is on the GI and DVT prophylaxis. He gets confused at times, he can be irritable, but he has not had any major outbursts today. He is being maintained psychotropically on Seroquel 50 mg at bedtime plus 12.5 mg b.i.d. and Wellbutrin 75 mg b.i.d. PHYSICAL EXAMINATION VITAL SIGNS: Blood pressure 142/85, temperature 97.6, pulse 65, respiratory rate 16 Ihsan Moctezuma MD/ PhD
--- NOTE | 2017-01-24 14:29 | PN ---
DATE: 01/23/2017 SUBJECTIVE: The patient was seen and examined on 01/23/2017, looking comfortable. No nausea, vomiting or diarrhea. No hematemesis or hematochezia. Still is on one-to-one. PHYSICAL EXAMINATION: VITAL SIGNS: Temperature 97.6, pulse 65, blood pressure 142/85, and respiratory rate 15. HEENT: Head is normocephalic, atraumatic. Eyes, PERRLA. Extraocular muscles are intact. Conjunctivae are clear. Nose is patent. Mucous membrane moist. NECK: Supple. No carotid bruits. No JVD or thyromegaly. CHEST: Bilateral symmetrical. HEART: S1 and S2 positive. LUNGS: Clear to auscultation. ABDOMEN: Soft. Bowel sounds positive. No organomegaly. EXTREMITIES: No edema. No cyanosis. NEUROLOGICAL: The patient is awake and alert. Moving all 4 extremities. No focal deficit. MEDICATIONS: Aspirin, Ativan, Maalox, milk of magnesia, Pepcid, Seroquel, Synthroid, Tylenol, Pepcid, Wellbutrin. LABORATORY DATA: We do not have recent labs today, but I reviewed old labs. ASSESSMENT AND PLAN: Mr. Luis Pandey is a 76-year-old male with multiple medical problems, advanced dementia, altered mental status, anxiety, hypertension, hypercholesterolemia, diverticulitis, hemorrhoids, colon polyp removed, urinary incontinence, psychiatrist is on the case, GI and DVT prophylaxis. Repeat labs. We will follow up. Aisha Iyer MD
--- NOTE | 2017-01-25 07:36 | PN ---
DATE: 01/24/2017 SUBJECTIVE: The patient is a 76-year-old male. The patient is examined at bedside, looks comfortable. No nausea, vomiting, diarrhea. No hematuria or hematochezia. No swelling of the leg. No chest pain, no palpitation. No headache, no dizziness. PHYSICAL EXAMINATION: VITAL SIGNS: Temperature 97.2, pulse 72, blood pressure 178/96, respiratory rate 17. HEENT: Head normocephalic, atraumatic. Eyes PERRLA. Extraocular muscles intact. Conjunctivae clear. Nose is patent. Mucous membranes moist. NECK: Supple. No carotid bruit, JVD, or thyromegaly. CHEST: Bilaterally symmetrical. HEART: S1 and S2 positive. LUNGS: Clear to auscultation. ABDOMEN: Soft. Bowel sounds positive. No organomegaly. EXTREMITIES: No edema. No cyanosis. NEUROLOGIC: The patient is awake and alert. Follows simple commands. MEDICATIONS: Aspirin, Ativan, Maalox, Milk of Magnesia, Pepcid, Proscar, Seroquel, and Synthroid. LABORATORY DATA: We do not have recent labs today, but I reviewed old labs. ASSESSMENT AND PLAN: The patient is a 76-year-old male with multiple medical problems, advanced dementia, changing into aggressive behavior especially with the family members, has a history of altered mental status, anxiety, hypertension, diverticulitis, hemorrhoids, colonic polyp, urinary tract infection, psychiatry is on the case. GI and DVT prophylaxis, repeat labs. We will follow up. Aisha Iyer MD MTDGonzalez
[2017-01-25] MEDS: Levothyroxine 50 MCG TAB PO SCH (08:33)
--- NOTE | 2017-01-26 01:14 | PN ---
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 He has made a significant improvement in that his agitation has diminished, he at times interacts in a meaningful manner and has generally become more social. He is, however, also confused more so than not so. This afternoon, nursing noted that his mood was labile, but then he calmed now. He was of the impression that his was on the unit as I meet with him this evening, he is so insisting that his is somewhere in the immediate environs. Fall precautions are being maintained. The patient remains redirectable. He has been under the medical consultative services of his PMD, Dr. Iyer who has been monitoring his hypertension, diverticulitis, hemorrhoids, colonic polyp, and urinary tract infection. There are no laboratories over the past few days, but previous results have been reviewed. PHYSICAL EXAMINATION VITAL SIGNS: Blood pressure 119/78, pulse 68, temperature 98.7, respiratory rate 16. The patient seems to have responded well to a regimen of Seroquel 12.5 mg b.i.d., and 15 mg at bedtime along with Wellbutrin 75 mg b.i.d. He is also on Proscar 5 mg daily and Synthroid 50 mcg daily. If the patient can maintain this good progress, it is anticipated that he will be ready for discharge tomorrow. Ihsan Moctezuma MD/ PhD
[2017-01-26] MEDS: Levothyroxine 50 MCG TAB PO SCH (06:29)
[2017-01-26 07:13] VITALS: BP 127/82; PULSE 57; RESP 17; TEMP 98.2
--- NOTE | 2017-01-27 01:24 | PN ---
The patient is a 76-year-old male. SUBJECTIVE: The patient is seen and examined at the bedside early in the morning, looking comfortable. No nausea, vomiting or diarrhea. No hematuria. No hematochezia. No swelling of the legs. No chest pain. No headache. No dizziness. The patient is a poor historian. PHYSICAL EXAMINATION: head nc , at , eyes libby , eomi , nose patent , mmm , neck supple , chest cta , abdomen soft . bs+ . ext no oedema , awake and allert labs . no new lab , old labs seen by me meds . noted by me A/P The patient is a 76-year-old male with multiple medical problems, was admitted on the medical floor for altered mental status, seen by Dr. Tanna Goddard, then transferred to psych for anxiety and depression. She once in a while gets aggressive behavior, sometimes with family members also, history of hypertension, diverticulitis, hemorrhoids, chronic polyp, urinary tract infection. The patient is discharged today with prescription of medication. Follow up with primary care physician and psychiatrist. Aisha Iyer MD MTDD
--- NOTE | 2017-01-27 04:42 | PN ---
DATE: 01/25/2017 SUBJECTIVE: The patient is a 76-year-old male. The patient was seen examined at bedside, looking comfortable. No nausea, vomiting or diarrhea. No hematuria or hematochezia. No swelling of the leg. No chest pain. No palpitation. No headache. No dizziness. The patient is poor historian. PHYSICAL EXAMINATION: VITAL SIGNS: Temperature 98.2, pulse 57, blood pressure 127/82 and respiratory rate is 17. HEENT: Head, normocephalic and atraumatic. Eyes, PERRLA. Extraocular muscles intact. Conjunctivae clear. Nose is patent. Mucous membranes moist. NECK: Supple. No carotid bruit, JVD or thyromegaly. CHEST: Bilaterally symmetrical. HEART: S1 and S2 positive. LUNGS: Clear to auscultation. ABDOMEN: Soft. Bowel sounds positive. No organomegaly. EXTREMITIES: No edema. No cyanosis. NEUROLOGIC: The patient is awake and alert. Moving all 4 extremities. No focal deficit. MEDICATIONS: Aspirin, Ativan, Maalox, milk of magnesia, Pepcid, Proscar, Seroquel, Synthroid, Tylenol, vitamin B1 and Wellbutrin. LABORATORY DATA: White blood cells is 8.9, hemoglobin 14.8, hematocrit 41.7 and platelets 164. ASSESSMENT AND PLAN: Mr. Dannie Smith 76 years old male with advanced dementia with aggressive behavior problem, history of anxiety, hypertension, hypercholesterolemia, diverticulitis, hemorrhoids, chronic polyp removed, urinary incontinence, getting side treatment from Dr. Moctezuma. Gastrointestinal and deep venous thrombosis prophylaxis. Repeat labs. We will follow up. Aisha Iyer MD
--- NOTE | 2017-02-10 09:01 | DS ---
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 He was admitted to the psychiatric unit for the same symptoms. He had no prior psychiatric history before admitted to [facility] this month, but did have a history of Lewy body dementia with parkinsonian features. He reported that he had seen a therapist or psychologist 3 to 4 years ago [address] on [place] between [facility] and [address] [place] [address], but could not remember why he saw this practitioner or the name of that person. PAST MEDICAL HISTORY: Positive for hypertension, hypothyroidism, falls, diverticulitis, hemorrhoids, colonic polyps with polypectomy, history of hematuria, and a history of urinary incontinence. SOCIAL HISTORY: He lives with his of 35 years, has 3 children. He denies history of substance use. 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 The patient remains constricted, sometimes agitated, but this diminished, and he became more social, but was confused. The patient was discharged on Pepcid 40 mg at bedtime, Seroquel 25 mg b.i.d., Synthroid 50 mcg daily, vitamin B12 100 mg daily, Wellbutrin 75 mg b.i.d. It was suggested that the patient to follow up with psychiatry ( ) and visiting nursing. His family was to consider this. CBC and differential showed lowered hematocrit of 41.7, MPV elevated at 12.2. Biochemical profile was within normal limits. DISCHARGE DIAGNOSIS: Dementia - Lewy body type - with behavioral features. The patient was discharged on medication as noted. He is not homicidal, suicidal, or psychotic at time of discharge. Ihsan Moctezuma MD/ PhD
== END 2017-01-26 16:07 | disposition home or self-care (01) | DRG 57 ==
LOC: PSYC 20:45
PROVIDERS: ADMIT Psychiatry & Neurology Addiction Medicine; ATTEND Psychiatry & Neurology Addiction Medicine
DX: G31.83 Neurocognitive disorder with Lewy bodies (principal); F02.81 Dementia in other diseases classified elsewhere, unspecified severity, with behavioral disturbance; R31.9 Hematuria, unspecified; I10 Essential (primary) hypertension; F41.9 Anxiety disorder, unspecified; E78.00 Pure hypercholesterolemia, unspecified; E03.9 Hypothyroidism, unspecified; K64.9 Unspecified hemorrhoids; K57.90 Diverticulosis of intestine, part unspecified, without perforation or abscess without bleeding; R32 Unspecified urinary incontinence; K63.5 Polyp of colon; K21.9 Gastro-esophageal reflux disease without esophagitis

== ENCOUNTER 2017-02-03 18:43 | Observation (INO) | payer MEDICARE ==
[2017-02-03 18:50] VITALS: BMI 23.1
[2017-02-03] MEDS ORDERED: Oxycodone/Acetaminophen 2.5/325 mg Tab PO STA (19:23)
--- NOTE | 2017-02-03 19:52 | ED PDOC ---
Arrival/HPI <Cj Bañuelos - Last Filed: 02/04/17 05:49> - General Historian: Patient EM Caveat: Dementia - History of Present Illness Time/Duration: Prior to Arrival Symptom Onset: Sudden Quality: Aching Severity Level: 6 Activities at Onset: Rest Context: Other (fall) <BETTY SAUCEDO - Last Filed: 02/04/17 06:13> - General Chief Complaint: Trauma Time Seen by Provider: 02/03/17 19:07 - History of Present Illness Narrative History of Present Illness (Text): Patient is a 76 year old male who presents to [facility] ED 02/03/17 with complaints of shoulder pain. According to EMS patient was on commode, tried getting up and fell backward hitting his head; there was no loss of consciousness. 02/03/17 19:49 (BETTY SAUCEDO) Past Medical History - Provider Review Nursing Documentation Reviewed: Yes - Infectious Disease Hx of Infectious Diseases: None - Cardiac Hx Cardiac Disorders: Yes - Pulmonary Hx Respiratory Disorders: No - Neurological Hx Neurological Disorder: Yes Hx Dementia: Yes Hx Parkinson's Disease: Yes - HEENT Hx HEENT Disorder: Yes (eyeglasses) - Renal Hx Renal Disorder: No - Endocrine/Metabolic Hx Hypothyroidism: Yes - Hematological/Oncological Hx Blood Disorders: No - Integumentary Hx Dermatological Disorder: No Other/Comment: small 0.5cm round ibrahim colored hard growth to top of r hand and red dry scab small 0.5cm to top of right hand, brown skin discoloration under bottom left lip - Musculoskeletal/Rheumatological Hx Falls: Yes (today and past) - Gastrointestinal Hx Gastrointestinal Disorders: Yes Other/Comment: colonoscopy 08/2013 dx diverticulosis, hemorrhoids, hx colon polyps - Genitourinary/Gynecological Hx Genitourinary Disorders: Yes Hx Hematuria: Yes Hx Incontinence: Yes - Psychiatric Hx Psychophysiologic Disorder: Yes Hx Emotional Abuse: No Hx Physical Abuse: No Hx Substance Use: No - Anesthesia Hx Anesthesia: Yes Hx Anesthesia Reactions: No Hx Malignant Hyperthermia: No - Suicidal Assessment Feels Threatened In Home Enviroment: No <BETTY SAUCEDO - Last Filed: 02/04/17 06:13> Family/Social History - Physician Review Nursing Documentation Reviewed: Yes Family/Social History: No Known Family HX Smoking Status: Unknown If Ever Smoked Hx Alcohol Use: No Hx Substance Use: No <BETTY SAUCEDO - Last Filed: 02/04/17 06:13> Allergies/Home Meds <SarmadCj - Last Filed: 02/04/17 05:49> <BETTY SAUCEDO - Last Filed: 02/04/17 06:13> Allergies/Adverse Reactions: Allergies No Known Allergies Allergy (Verified 01/16/17 21:04) Review of Systems - Review of Systems Systems not reviewed;Unavailable: Dementia <BETTY SAUCEDO - Last Filed: 02/04/17 06:13> Physical Exam - Physical Exam Physical Exam Limitations: Clinical Condition Temperature: Afebrile Blood Pressure: Normal Pulse: Regular Respiratory Rate: Normal Appearance: Positive for: Comfortable Pain Distress: Moderate Mental Status: Positive for: Alert and Oriented X 3 - Systems Exam Head: Present: Atraumatic, Normocephalic Extroacular Muscles: Present: EOMI Conjunctiva: Present: Normal Mouth: Present: Moist Mucous Membranes Nose (External): Present: Atraumatic. No: Abrasion, Contusion Respiratory/Chest: Present: Clear to Auscultation, Good Air Exchange Cardiovascular: Present: Regular Rate and Rhythm, Normal S1, S2 Abdomen: Present: Normal Bowel Sounds. No: Tenderness, Distention Upper Extremity: Present: Normal Inspection Lower Extremity: Present: Normal Inspection Neurological: Present: CN II-XII Intact Skin: Present: Warm, Normal Color Psychiatric: Present: Other (Dementia). No: Alert, Oriented x 3 <BETTY SAUCEDO - Last Filed: 02/04/17 06:13> Vital Signs Temp Pulse Resp BP Pulse Ox 02/04/17 00:19 70 18 136/78 97 02/03/17 23:46 98.0 F 72 17 136/78 96 02/03/17 22:40 63 19 128/70 96 02/03/17 18:54 98.1 F 70 18 136/79 98 Medical Decision Making - Lab Interpretations I have reviewed the lab results: Yes - RAD Interpretation [employer]: ED Physician, Radiologist - EKG Interpretation Interpreted by ED Physician: Yes Type: 12 lead EKG <SarmadCj - Last Filed: 02/04/17 05:49> - Lab Interpretations I have reviewed the lab results: Yes <BETTY SAUCEDO - Last Filed: 02/04/17 06:13> ED Course and Treatment: Impression: Pt seen and evaluated with emergency medical dispatcher. Pt, whose past medical history includes Parkinson's disease and Alzheimer's dementia, presented s/p near- syncopal episode while getting up from commode. Pt hit his head and complaining of shoulder pain. Aware and agree with HPI, clinical findings, plan, and management. Plan: -- CT Head w/o contrast -- EKG -- XR Shoulder -- Labs, cardiac enzymes, TSH -- Urinalysis -- Percocet -- Reassess and disposition Progress Notes: 02/03/17 23:[address] Zaragoza, covering for Dr. Iyer, who is aware and agrees with plan. Pt will go to Telemetry for near-syncope. (Cj Bañuelos) Assessment 76 year old male presents with complaints of near syncope while on the commode. Plan -CT head; negative -X-ray of shoulders; negative -Will contact Dr. Iyer and admit patient to telemetry for continuous monitoring for near syncopal episode. 02/03/17 23:32 (BETTY SAUCEDO) - Lab Interpretations Lab Results: 02/03/17 20:55 02/03/17 20:55 Lab Results 02/03/17 20:55: TSH 3rd Generation 4.61 02/03/17 20:55: Sodium 140, Potassium 3.7, Chloride 104, Carbon Dioxide 28, Anion Gap 12, BUN 12, Creatinine 0.7, Est GFR ( Amer) > 60, Est GFR (Non- Af Amer) > 60, Random Glucose 91, Calcium 8.8, Phosphorus 3.1, Magnesium 1.8 02/03/17 20:55: WBC 8.9, RBC 4.59, Hgb 14.8, Hct 42.0, MCV 91.5, MCH 32.2, MCHC 35.2, RDW 12.0, Plt Count 209, MPV 12.1 H, Gran % 71.0 H, Lymph % (Auto) 13.2 L , [place] % (Auto) 11.2 H, Eos % (Auto) 4.3, Baso % (Auto) 0.3, Gran # 6.28, Lymph # 1.2, [place] # 1.0 H, Eos # 0.4, Baso # 0.03 02/03/17 20:00: Urine Color Yellow, Urine Appearance Clear, Urine pH 6.0, Ur Specific [place] >= 1.030, Urine Protein Trace H, Urine Glucose (UA) Negative, Urine Ketones Negative, Urine Blood Negative, Urine Nitrate Negative, Urine Bilirubin Negative, Urine Urobilinogen 1.0 H, Ur Leukocyte Esterase Negative, Urine RBC Negative, Urine WBC 0 - 2, Ur Epithelial Cells 0 - 2, Urine Bacteria Small - RAD Interpretation Radiology Orders: 02/03/17 19:22 SHOULDER MIN 2 VIEWS BI [RAD] Stat 02/03/17 19:29 HEAD W/O CONTRAST [CT] Stat - Medication Orders Current Medication Orders: Discontinued Medications Oxycodone/Acetaminophen (Percocet 2.5/325 Mg Tab) 1 tab PO STAT STA Stop: 02/03/17 19:24 Last Admin: 02/03/17 20:54 Dose: 1 tab Disposition/Present on Arrival <Cj Bañuelos - Last Filed: 02/04/17 05:49> - Present on Arrival Any Indicators Present on Arrival: No History of DVT/PE: No History of Uncontrolled Diabetes: No Urinary Catheter: No History of Decub. Ulcer: No History Surgical Site Infection Following: None - Disposition Have Diagnosis and Disposition been Completed?: Yes Disposition Time: 23:45 Patient Plan: Admission <BETTY SAUCEDO - Last Filed: 02/04/17 06:13> - Disposition Diagnosis: Syncope Disposition: HOSPITALIZED Condition: GUARDED
[2017-02-03 20:10] LABS: URINE BILIRUBIN NEGATIVE (NEGATIVE); URINE BLOOD NEGATIVE (NEGATIVE); URINE GLUCOSE (UA) NEGATIVE (NEGATIVE); URINE KETONE NEGATIVE (NEGATIVE); URINE LEUKOCYTE ESTERASE NEGATIVE Leu/uL (NEGATIVE); URINE PROTEIN TRACE mg/dL (<30 mg/dL)
[2017-02-03 20:13] LABS: URINE APPEARANCE CLEAR (CLEAR); URINE COLOR YELLOW (YELLOW)
[2017-02-03 20:27] LABS: URINE BACTERIA SMALL (NEG); URINE EPITHELIAL CELLS 0 - 2 /hpf (0-5); URINE RBC NEGATIVE /hpf (0-2); URINE WBC 0 - 2 /hpf (0-6)
--- NOTE | 2017-02-03 20:56 | CT ---
EXAM: CT Head Without Intravenous Contrast EXAM DATE/TIME: 02/03/2017 7:29 PM CLINICAL HISTORY: 76 years old, male; Injury or trauma; Fall; Initial encounter; Concussion / head injury TECHNIQUE: Axial computed tomography images of the head/brain without intravenous contrast. All CT scans at this facility use one or more dose reduction techniques, viz.: automated exposure control; ma/kV adjustment per patient size (including targeted exams where dose is matched to indication; i.e. head); or iterative reconstruction technique. COMPARISON: CT - HEAD W/O CONTRAST 01/11/2017 1:10:27 AM FINDINGS: Brain: There is prominence of sulci gyri and ventricles. There is no midline shift. There is more focal volume loss in the left occipital lobe with dilatation of the atrium of the left lateral ventricle, unchanged. There is decreased attenuation in periventricular white matter. There are no focal masses. There are no focal hemorrhages. Cadet-white differentiation is visualized. Ventricles: See above. Bones: Cranial vault is intact. Soft tissues: unremarkable Sinuses: There is no acute sinusitis. Ears and mastoids: Middle ears and mastoids are unremarkable. Orbits: Orbital contents are unremarkable. IMPRESSION: Atrophy and small vessel disease no acute intracranial abnormality
--- NOTE | 2017-02-03 21:27 | RAD ---
PROCEDURE: Radiographs of both shoulders HISTORY: shoulder pain COMPARISON: None available. FINDINGS: BONES: There is decreased mineralization of the bones, most likely representing osteoporosis. Rarely, underlying metabolic bone disease or infiltrative lesions can also have this appearance. This decreases the sensitivity for detection of acute fracture lines, and if this is of clinical concern, MRI should be considered. Right shoulder: No acute displaced fracture identified. Left shoulder: No acute displaced fracture identified. JOINTS: Right shoulder: No dislocation. Acromioclavicular arthropathy. Glenohumeral joint space narrowing. Left shoulder: No dislocation. Acromioclavicular arthropathy. Glenohumeral joint space narrowing. SOFT TISSUES: Right shoulder: Unremarkable. No evidence of radiopaque foreign body. Right shoulder: Unremarkable. No evidence of radiopaque foreign body. OTHER FINDINGS: Incidental note is made of dense atherosclerotic calcifications of the aortic knob. IMPRESSION: Diffuse osseous demineralization. Degenerative changes. No acute displaced fracture identified. Additional findings/discussion as above.
[2017-02-03 21:45] LABS: BASO # 0.03 K/mm3 (0.0-2.0); BASO % 0.3 % (0.0-3.0); EOS # 0.4 (0.0-0.7); EOS % 4.3 % (1.5-5.0); GRAN # 6.28 (1.4-6.5); LYMPH # 1.2 (1.2-3.4); LYMPH % 13.2 % (22.0-35.0); MEAN CELL VOLUME 91.5 fl (80.0-105.0); MEAN CORPUSCULAR HEMOGLOBIN 32.2 pg (25.0-35.0); MEAN CORPUSCULAR HGB CONC 35.2 g/dl (31.0-37.0); MEAN PLATELET VOLUME 12.1 fl (7.0-11.0); MONO % 11.2 % (1.0-6.0); WHITE BLOOD COUNT 8.9 10^3/ul (4.5-11.0)
[2017-02-03 21:51] LABS: BLOOD UREA NITROGEN 12 mg/dL (7-21); CALCIUM 8.8 mg/dL (8.4-10.5); CARBON DIOXIDE 28 mmol/L (21-33); CHLORIDE 104 mmol/L (98-107); GFR AFRICAN-AMERICAN > 60; GLUCOSE,RANDOM 91 mg/dL (70-110); MAGNESIUM 1.8 mg/dL (1.7-2.2); PHOSPHOROUS 3.1 mg/dL (2.5-4.5); POTASSIUM 3.7 mmol/L (3.6-5.0); SODIUM 140 mmol/L (132-148)
[2017-02-04 06:15] VITALS: O2SAT 95
[2017-02-04 12:01] VITALS: BP 144/82; PULSE 71; RESP 18; TEMP 98
--- NOTE | 2017-02-04 14:14 | HP ---
CHIEF COMPLAINT AND HISTORY OF PRESENT ILLNESS: This is a 76-year-old male who is coming into the hospital complaining of pain in the right shoulder. The patient was on his commode. He was trying to get up and he fell backwards, he hit his head. He had no loss of consciousness. The patient had no complaints of headaches or dizziness. He is not able to give a full history. Most information was taken from the staff, the ER, and doctor notes. PAST MEDICAL HISTORY: Hypertension, hypothyroidism, dementia, falls, hemorrhoids, colon polyps. PAST SURGICAL HISTORY: Polypectomy. FAMILY HISTORY: Noncontributory. SOCIAL HISTORY: Unable to assess. HOME MEDICATIONS: His home medications are listed in the MAR reviewed. PHYSICAL EXAMINATION: VITAL SIGNS: Temperature is 98.1, pulse is 79, blood pressure 115/74, respirations are 18, O2 saturation is 95%, height is 5 feet 8 inches, weight is 152 pounds. BMI is 23.1. GENERAL: The patient lying in bed, uncomfortable, and in no acute distress. HEENT: Atraumatic and normocephalic. Anicteric sclerae. Moist mucosa. [place] conjunctivae. No oral lesions. NECK: No JVD, anterior and posterior adenopathy, thyromegaly, or bruits. CARDIOVASCULAR: S1 and S2 regular. No murmur, rubs, or gallop. LUNGS: Clear to auscultation bilaterally. No wheezes, rales, or rhonchi. ABDOMEN: Bowel sounds are positive. Soft, nontender and nondistended. No hepatosplenomegaly. No rebound and no guarding EXTREMITIES: No cyanosis, clubbing, or edema. NEUROLOGIC: No facial asymmetry. Tongue is midline. No uvula deviation. Power is 5/5 upper extremity and lower extremity. Sensation intact in upper extremity and lower extremity. PSYCHIATRIC: The patient is awake and alert, but not able to answer questions. He says he has no depression. He has poor insight. No blunted affect. GENITOURINARY: No CVA tenderness. VASCULAR: 2+ pulses in the carotid pulses and pedal pulses. SKIN: No erythema or nodules. SPINE: Shows normal curvature. EXTREMITIES: No Cyanosis and clubbing, no edema. LABORATORY DATA: White count of 8.9, hemoglobin 14.8. Chemistry shows a TSH of 4.6, creatinine is 0.7. Urine shows ketones are negative, blood is negative, and nitrates are negative. Right shoulder x-ray shows degenerative changes, no acute fracture. CT of the head showed atrophy and small vessel disease. ASSESSMENT: 1. Fall. 2. Dementia. 3. Right shoulder degenerative joint disease. 4. Parkinson's. 5. Anxiety. 6. Hypertension. 7. Dyslipidemia. PLAN: The patient is currently on aspirin, this will be continued. The patient is going to be on finasteride. He is on Synthroid for hypothyroidism. He is on Seroquel. The patient is on Wellbutrin as well as on a heart healthy diet. We will speak to the patient's family to give them update. We will call the patient's son, Dannie. Ace Zaragoza MD
[2017-02-05] MEDS ORDERED: Levothyroxine 50 MCG TAB PO SCH (06:00)
--- NOTE | 2017-02-05 16:26 | CARD ---
APPROVED REPORT EKG Measurement Heart [id number] <Conclusion> Normal sinus rhythm Incomplete right bundle branch block Inferior infarct, age undetermined Abnormal ECG
--- NOTE | 2017-02-10 07:31 | DS ---
The patient is a 76 years old male. The patient was never seen by me, Dr. Zaragoza saw the patient, who did H and P on 02/04/2017 and same day the patient went home, and for details, see Dr. Ace Zaragoza's H and P. Aisha Iyer MD
== END 2017-02-04 14:35 | disposition home or self-care (01) ==
LOC: ED 18:43 → ERH 02-04 00:05 → 2RNO 02-04 01:47
PROVIDERS: ADMIT Internal Medicine; ATTEND Internal Medicine
DX: R55 Syncope and collapse (principal); G20 Parkinson's disease; F02.80 Dementia in other diseases classified elsewhere, unspecified severity, without behavioral disturbance, psychotic disturbance, mood disturbance, and anxiety; G30.9 Alzheimer's disease, unspecified; I10 Essential (primary) hypertension; E03.9 Hypothyroidism, unspecified; M19.011 Primary osteoarthritis, right shoulder; E78.5 Hyperlipidemia, unspecified; F41.9 Anxiety disorder, unspecified; Z91.81 History of falling; Z86.010 Personal history of colon polyps
CPT/HCPCS: 70450; 73030; 80048; 81001; 83735; 84100; 84443; 85025; 93005; 99285; G0378